=== PATIENT | male | born 1945 | race Caucasian/White ===

== ENCOUNTER 2019-01-30 10:30 | Emergency (ER) | payer MEDICARE, BC ==
[~2019-01-30] VITALS: Ht 167.6 cm; Wt 104.0 kg
[~2019-01-30 10:30] MED LIST: ALBU8HFA PO; CAR2T PO; DUTA0.5C40 PO; NOR5T PO; NORCO10T PO; VALS1TAB PO; ZOLP5TAB8 PO
[2019-01-30 11:16] LABS: BASOPHILS % (AUTO) 0.3 % (0-1); EOSINOPHILS # (AUTO) 0.6 X10'3 (0-0.9); EOSINOPHILS % (AUTO) 6.9 % (0-6); HEMATOCRIT 43.3 % (42.0-52.0); HEMOGLOBIN 14.6 g/dl (14.0-17.9); LYMPHOCYTES # (AUTO) 1.5 X10'3 (1.1-4.8); MEAN CORPUSCULAR HEMOGLOBIN 29.2 PG (27.0-31.0); MEAN CORPUSCULAR HGB CONC 33.7 g/dL (33.0-36.5); MEAN CORPUSCULAR VOLUME 86.5 FL (78-98); MEAN PLATELET VOLUME 8.3 FL (7.4-10.4); MONOCYTES # (AUTO) 0.5 X10'3 (0-0.9); MONOCYTES % (AUTO) 6.5 % (2-12); NEUTROPHILS # (AUTO) 5.4 X10'3 (1.8-7.7); NEUTROPHILS % (AUTO) 67.3 % (42-75); PLATELET COUNT 210 X10'3 (140-440); RED CELL DISTRIBUTION WIDTH 14.1 % (11.5-14.5)
[2019-01-30 11:32] LABS: ALANINE AMINOTRANSFERASE 30 U/L (12-78); ALBUMIN 3.8 G/DL (3.4-5.0); ALBUMIN/GLOBULIN RATIO 1.1 (1.1-1.5); ALKALINE PHOSPHATASE 68 IU/L (46-116); ANION GAP 13 (8-16); ASPARTATE AMINO TRANSFERASE 15 U/L (10-37); BILIRUBIN,TOTAL 0.6 MG/DL (0.1-1.0); BLOOD UREA NITROGEN 17 MG/DL (7-18); BUN/CREATININE RATIO 17.9 (5.4-32.0); CALCIUM 8.5 MG/DL (8.5-10.1); CHLORIDE 109 MMOL/L (99-107); CREATININE 0.95 MG/DL (0.60-1.10); GLUCOSE 136 MG/DL (70-104); POTASSIUM 3.9 MMOL/L (3.5-5.1); SODIUM 144 MMOL/L (135-145); TOTAL CARBON DIOXIDE 21.8 MMOL/L (24-32); TOTAL PROTEIN 7.3 G/DL (6.4-8.2); eGFR 78 ML/MIN
--- NOTE | 2019-01-30 13:00 | NUR ---
breaking primary RN pt sounds like he needs a breathing treatment, will req
--- NOTE | 2019-01-30 13:08 | NUR ---
spoke to dr hill, re: diff breathing, he said it is congestion, to order rt cold mist humidifier, put in order
[2019-01-30] MEDS ORDERED: ipratropium/albuterol 3ml nebule NEB ONE (13:50)
[2019-01-30] MEDS ORDERED: ipratropium/albuterol 3ml nebule ONE (13:54)
--- NOTE | 2019-01-30 14:07 | NUR ---
patient receiving breathing tx.call light within reach.
--- NOTE | 2019-01-30 14:12 | NUR ---
paged RT to see if breathing tx has been given.
[2019-01-30 14:33] VITALS: BP 149/88
== END 2019-01-30 14:38 | disposition home or self-care (01) ==
LOC: ER 10:30
DX: J32.9 Chronic sinusitis, unspecified (principal); R05 Cough; I10 Essential (primary) hypertension; G89.29 Other chronic pain; Z79.899 Other long term (current) drug therapy
CPT/HCPCS: 36415; 71046; 80053; 83880; 84484; 85025; 93005; 94640; 94760; 99284

== ENCOUNTER 2019-02-09 21:14 | Inpatient (IN) | payer MEDICARE, OTHER ==
[~2019-02-09] VITALS: Ht 167.6 cm; Wt 102.7 kg
[2019-02-09 22:03] LABS: BASOPHILS % (AUTO) 0.1 % (0-1); EOSINOPHILS # (AUTO) 0.6 X10'3 (0-0.9); EOSINOPHILS % (AUTO) 6.9 % (0-6); HEMATOCRIT 40.6 % (42.0-52.0); HEMOGLOBIN 13.9 g/dl (14.0-17.9); LYMPHOCYTES # (AUTO) 1.9 X10'3 (1.1-4.8); LYMPHOCYTES % (AUTO) 21.3 % (21-51); MEAN CORPUSCULAR HEMOGLOBIN 29.7 PG (27.0-31.0); MEAN CORPUSCULAR HGB CONC 34.2 g/dL (33.0-36.5); MEAN PLATELET VOLUME 8.3 FL (7.4-10.4); MONOCYTES # (AUTO) 0.7 X10'3 (0-0.9); MONOCYTES % (AUTO) 7.5 % (2-12); NEUTROPHILS # (AUTO) 5.6 X10'3 (1.8-7.7); NEUTROPHILS % (AUTO) 64.2 % (42-75); PLATELET COUNT 209 X10'3 (140-440); RED BLOOD COUNT 4.67 X10'6 (4.70-6.10); RED CELL DISTRIBUTION WIDTH 14.6 % (11.5-14.5); WHITE BLOOD COUNT 8.8 X10'3 (4.5-11.0)
[2019-02-09] MEDS ORDERED: dexamethasone sod phosphate 10mg/ml inj IV STA (22:03)
[2019-02-09] MEDS ORDERED: ipratropium/albuterol 3ml nebule NEB ONE ×2 (22:05→23:40)
[2019-02-09 22:11] LABS: PARTIAL THROMBOPLASTIN TIME 27 SECONDS (22-32)
[2019-02-09 22:13] LABS: ALANINE AMINOTRANSFERASE 31 U/L (12-78); ALBUMIN 3.7 G/DL (3.4-5.0); ALKALINE PHOSPHATASE 63 IU/L (46-116); ANION GAP 11 (8-16); ASPARTATE AMINO TRANSFERASE 14 U/L (10-37); BILIRUBIN,TOTAL 0.5 MG/DL (0.1-1.0); BLOOD UREA NITROGEN 16 MG/DL (7-18); BUN/CREATININE RATIO 12.4 (5.4-32.0); CHLORIDE 108 MMOL/L (99-107); CREATININE 1.29 MG/DL (0.60-1.10); GLUCOSE 174 MG/DL (70-104); POTASSIUM 3.7 MMOL/L (3.5-5.1); SODIUM 143 MMOL/L (135-145); TOTAL CARBON DIOXIDE 23.6 MMOL/L (24-32); TOTAL PROTEIN 7.4 G/DL (6.4-8.2); eGFR 55 ML/MIN
--- NOTE | 2019-02-09 23:31 | NUR ---
Pt states he drops to 84% at home without oxygen. Titrated pt off oxygen here and pt is currently 92% on room air. in speaking with pt now.
[2019-02-09] MEDS ORDERED: dexamethasone 4mg tablet PO ONE (23:40)
[2019-02-10] MEDS ORDERED: iohexol 350MG/ML 100ml bottle IV ONE (00:06)
[2019-02-10 01:01] LABS: ABG BASE EXCESS -2.7 mmol/L (-2.0-3.0); ABG HCO3 21.6 mmol/L (22.0-26.0); ABG OXYGEN SATURATION 92.1 % (95-98); ABG PCO2 (T) 36.5 mmHg (35.0-45.0); ABG PH (T) 7.391 (7.350-7.450); ABG PO2 (T) 64.1 mmHg (83-108); ALLEN'S TEST Positive; FCOHb 0.8 % (0.5-1.5); FMetHb 0.2 % (0.3-1.12); FO2Hb 91.2 % (94-100); TOTAL HEMOGLOBIN 14.3 G/dl (14.0-17.9)
[2019-02-10] MEDS ORDERED: magnesium 2GM in 50ml NS 50 ML IV PRN (01:40)
[2019-02-10] MEDS ORDERED: docusate sod 100mg capsule PO PRN (01:40)
[2019-02-10] MEDS ORDERED: potassium CL 10mEq/100ml bag 100 ML IV PRN ×2 (01:40)
[2019-02-10] MEDS ORDERED: magnesium Cl slow-release 64mg tablet PO PRN (01:40)
[2019-02-10] MEDS ORDERED: mag hydrox/Alum hydrox/simeth 30ml oral suspension PO PRN (01:40)
[2019-02-10] MEDS ORDERED: acetaminophen 325mg tablet PO PRN (01:40)
[2019-02-10] MEDS ORDERED: morphine 2 MG/ML inj. syringe IV PRN ×2 (01:40)
[2019-02-10] MEDS ORDERED: potassium Cl 20 mEq SR tablet PO PRN ×2 (01:40)
[2019-02-10] MEDS ORDERED: magnesium 4gm in 100ml NS 100 ML IV PRN (01:40)
[2019-02-10] MEDS ORDERED: ondansetron/PF 4mg/2ml inj IV PRN (01:40)
[2019-02-10] MEDS ORDERED: ipratropium/albuterol 3ml nebule NEB PRN (01:40)
[2019-02-10] MEDS: normal saline 1000ml 1,000 ML IV SCH ×4 (02:33→21:52)
--- NOTE | 2019-02-10 03:12 | NUR ---
Received report from SUN Judge. Awaiting patient arrival to the unit.
--- NOTE | 2019-02-10 03:30 | NUR ---
Patient arrived to the floor via wheelchair. Placed in room 340B. Patient is awake and alert on room air, in no apparent distress. Call light and items of frequent use within reach. Will continue to monitor.
[2019-02-10 03:35] VITALS: BP 133/85
[2019-02-10] MEDS ORDERED: zolpidem 5mg tablet PO PRN (04:15)
--- NOTE | 2019-02-10 06:20 | NUR ---
Problems reprioritized. Patient report given, questions answered & plan of care reviewed with SUN Roman.
--- NOTE | 2019-02-10 06:30 | NUR ---
Patient in room [facility] 340. I have received report from CHERELLE GARSIA and had the opportunity to ask questions and assume patient care. Addendum: 02/10/19 at 1945 by Elkin Hernandez RN INCORRECT PATIENT
--- NOTE | 2019-02-10 06:30 | NUR ---
Patient in room [facility] 340. I have received report from JADA GARSIA and had the opportunity to ask questions and assume patient care.
[2019-02-10] MEDS ORDERED: doxazosin mesylate 2mg tablet PO SCH (08:00)
[2019-02-10] MEDS: K and/or MAG REPLACEMENT MC SCH (08:00)
[2019-02-10] MEDS ORDERED: HYDROCHLOROTHIAZIDE PO SCH (08:00)
[2019-02-10] MEDS ORDERED: dutasteride 0.5 MG capsule PO SCH (08:00)
[2019-02-10] MEDS ORDERED: VALSARTAN PO SCH (08:00)
[2019-02-10 08:16] VITALS: BP 163/93
[2019-02-10] MEDS: amLODIPine 5mg tablet PO SCH (09:26)
[2019-02-10] MEDS: enoxaparin 40mg/0.4ml syringe SQ SCH (09:28)
[2019-02-10] MEDS: methylPREDNISolone sod succ/PF 40mg inj. IV SCH ×2 (09:32→17:33)
[2019-02-10] MEDS: montelukast 10mg tablet PO SCH (10:12)
[2019-02-10 11:00] VITALS: BP 158/76
[2019-02-10] MEDS ORDERED: FAMO20TA8 PO (11:00)
[2019-02-10] MEDS ORDERED: TERA10CA4 PO (11:00)
[2019-02-10] MEDS ORDERED: SPIR25TA5 PO (11:00)
[2019-02-10] MEDS ORDERED: FINA5TAB11 PO (11:00)
[2019-02-10] MEDS ORDERED: BUDE0.5A3 NEB (11:00)
[2019-02-10] MEDS ORDERED: LOSA100T57 PO (11:00)
[2019-02-10] MEDS ORDERED: MONT10TA24 PO (11:00)
[2019-02-10] MEDS ORDERED: BUDE10.2 INH (11:00)
[2019-02-10] MEDS ORDERED: levoFLOXACIN-Levaquin 500mg/D5 100 ML IV ONE (12:55)
[2019-02-10] MEDS: HYDROcodone/acetaminophen 10/325mg tab PO PRN (13:15)
[2019-02-10] MEDS: ipratropium/albuterol 3ml nebule NEB SCH ×2 (13:55→20:15)
--- NOTE | 2019-02-10 17:07 | NUR ---
reviewed student documentation
--- NOTE | 2019-02-10 18:30 | NUR ---
Patient in room [facility] 340. I have received report from NICOLASA and had the opportunity to ask questions and assume patient care.
--- NOTE | 2019-02-10 18:30 | NUR ---
Problems reprioritized. Patient report given, questions answered & plan of care reviewed with ETELVINA GARSIA.
--- NOTE | 2019-02-10 18:30 | NUR ---
Problems reprioritized. Patient report given, questions answered & plan of care reviewed with CHERELLE GARSIA. Addendum: 02/10/19 at 1944 by Elkin Hernandez RN INCORRECT PATIENT
[2019-02-10 19:15] VITALS: BP 150/78
[2019-02-10 23:00] VITALS: BP 105/63
[2019-02-11] MEDS: methylPREDNISolone sod succ/PF 40mg inj. IV SCH ×3 (00:02→15:45)
[2019-02-11] MEDS: ipratropium/albuterol 3ml nebule NEB SCH ×6 (00:03→22:31)
[2019-02-11 05:07] LABS: BASOPHILS % (AUTO) 0 % (0-1); EOSINOPHILS % (AUTO) 0 % (0-6); HEMATOCRIT 38.4 % (42.0-52.0); HEMOGLOBIN 12.8 g/dl (14.0-17.9); LYMPHOCYTES # (AUTO) 0.7 X10'3 (1.1-4.8); LYMPHOCYTES % (AUTO) 6.4 % (21-51); MEAN CORPUSCULAR HEMOGLOBIN 29.3 PG (27.0-31.0); MEAN CORPUSCULAR HGB CONC 33.4 g/dL (33.0-36.5); MEAN CORPUSCULAR VOLUME 87.8 FL (78-98); MEAN PLATELET VOLUME 8.8 FL (7.4-10.4); MONOCYTES # (AUTO) 0.4 X10'3 (0-0.9); MONOCYTES % (AUTO) 3.1 % (2-12); NEUTROPHILS # (AUTO) 10.2 X10'3 (1.8-7.7); NEUTROPHILS % (AUTO) 90.5 % (42-75); PLATELET COUNT 194 X10'3 (140-440); RED BLOOD COUNT 4.37 X10'6 (4.70-6.10); RED CELL DISTRIBUTION WIDTH 14.3 % (11.5-14.5); WHITE BLOOD COUNT 11.3 X10'3 (4.5-11.0)
[2019-02-11 05:27] LABS: ALANINE AMINOTRANSFERASE 31 U/L (12-78); ALBUMIN 3.4 G/DL (3.4-5.0); ALBUMIN/GLOBULIN RATIO 0.9 (1.1-1.5); ALKALINE PHOSPHATASE 56 IU/L (46-116); ANION GAP 10 (8-16); ASPARTATE AMINO TRANSFERASE 13 U/L (10-37); BILIRUBIN,TOTAL 0.3 MG/DL (0.1-1.0); BLOOD UREA NITROGEN 19 MG/DL (7-18); BUN/CREATININE RATIO 16.5 (5.4-32.0); CALCIUM 8.9 MG/DL (8.5-10.1); CHLORIDE 109 MMOL/L (99-107); CREATININE 1.15 MG/DL (0.60-1.10); GLUCOSE 187 MG/DL (70-104); MAGNESIUM 2.1 MG/DL (1.5-2.4); POTASSIUM 4.1 MMOL/L (3.5-5.1); SODIUM 143 MMOL/L (135-145); TOTAL CARBON DIOXIDE 24.4 MMOL/L (24-32); eGFR 63 ML/MIN
--- NOTE | 2019-02-11 06:35 | NUR ---
Problems reprioritized. Patient report given, questions answered & plan of care reviewed with
[2019-02-11 07:00] VITALS: BP 132/73
[2019-02-11] MEDS: K and/or MAG REPLACEMENT MC SCH (08:00)
[2019-02-11] MEDS: montelukast 10mg tablet PO SCH (08:13)
[2019-02-11] MEDS: levoFLOXACIN-Levaquin 500mg/D5 100 ML IV SCH (08:13)
[2019-02-11] MEDS: amLODIPine 5mg tablet PO SCH (08:13)
[2019-02-11] MEDS: enoxaparin 40mg/0.4ml syringe SQ SCH (08:14)
[2019-02-11] MEDS: HYDROcodone/acetaminophen 10/325mg tab PO PRN ×2 (08:15→17:50)
[2019-02-11 11:57] VITALS: BP 153/76
[2019-02-11] MEDS: normal saline 1000ml 1,000 ML IV SCH ×2 (16:39→19:43)
--- NOTE | 2019-02-11 18:30 | NUR ---
Patient in room [facility] 340. I have received report from Estela GARSIA and had the opportunity to ask questions and assume patient care.
[2019-02-11 19:00] VITALS: BP 157/70
[2019-02-11] MEDS: lactobacillus rhamnosus 10,000 MMU CELLS/CAPSULE PO SCH (19:44)
[2019-02-11] MEDS ORDERED: budesonide 0.5mg/2ml UD nebule IH SCH (20:00)
[2019-02-11] MEDS: budesonide 0.5mg/2ml UD nebule IH SCH (20:00)
[2019-02-11] MEDS ORDERED: spironolactone 25 MG tablet PO ONE (20:10)
[2019-02-11] MEDS ORDERED: losartan 50mg tablet PO ONE (20:10)
[2019-02-11] MEDS ORDERED: famotidine 20mg tablet PO ONE (20:10)
[2019-02-11] MEDS ORDERED: finasteride 5mg tablet PO ONE (20:10)
[2019-02-11] MEDS ORDERED: terazosin 5mg capsule PO ONE (20:10)
--- NOTE | 2019-02-11 20:55 | NUR ---
2100 SVN with 0.5mg Pulmicort not given as it was given in report patient not to have any type of Steroids tonight because of procedure in am.
[2019-02-11] MEDS ORDERED: albuterol 2.5 MG/3 ML nebule NEB SCH (21:00)
[2019-02-11 23:02] VITALS: BP 141/63
[2019-02-12 04:52] LABS: BASOPHILS % (AUTO) 0 % (0-1); EOSINOPHILS % (AUTO) 0 % (0-6); HEMATOCRIT 37.8 % (42.0-52.0); HEMOGLOBIN 12.7 g/dl (14.0-17.9); LYMPHOCYTES # (AUTO) 1.4 X10'3 (1.1-4.8); MEAN CORPUSCULAR HEMOGLOBIN 29.7 PG (27.0-31.0); MEAN CORPUSCULAR HGB CONC 33.7 g/dL (33.0-36.5); MEAN PLATELET VOLUME 8.6 FL (7.4-10.4); MONOCYTES # (AUTO) 0.9 X10'3 (0-0.9); MONOCYTES % (AUTO) 6.8 % (2-12); NEUTROPHILS # (AUTO) 11.5 X10'3 (1.8-7.7); NEUTROPHILS % (AUTO) 83.2 % (42-75); PLATELET COUNT 208 X10'3 (140-440); RED BLOOD COUNT 4.29 X10'6 (4.70-6.10); RED CELL DISTRIBUTION WIDTH 14.7 % (11.5-14.5); WHITE BLOOD COUNT 13.9 X10'3 (4.5-11.0)
[2019-02-12 05:01] LABS: ALANINE AMINOTRANSFERASE 36 U/L (12-78); ALBUMIN 3.4 G/DL (3.4-5.0); ALKALINE PHOSPHATASE 54 IU/L (46-116); ANION GAP 8 (8-16); ASPARTATE AMINO TRANSFERASE 20 U/L (10-37); BILIRUBIN,TOTAL 0.3 MG/DL (0.1-1.0); BLOOD UREA NITROGEN 22 MG/DL (7-18); BUN/CREATININE RATIO 19.8 (5.4-32.0); CALCIUM 9.2 MG/DL (8.5-10.1); CHLORIDE 110 MMOL/L (99-107); CREATININE 1.11 MG/DL (0.60-1.10); GLUCOSE 131 MG/DL (70-104); MAGNESIUM 2.3 MG/DL (1.5-2.4); SODIUM 144 MMOL/L (135-145); TOTAL CARBON DIOXIDE 25.9 MMOL/L (24-32); TOTAL PROTEIN 6.8 G/DL (6.4-8.2); eGFR 65 ML/MIN
[2019-02-12] MEDS: HYDROcodone/acetaminophen 10/325mg tab PO PRN (05:19)
[2019-02-12] MEDS: budesonide 0.5mg/2ml UD nebule IH SCH (06:30)
--- NOTE | 2019-02-12 06:57 | NUR ---
Problems reprioritized. Patient report given, questions answered & plan of care reviewed with Joanne GARSIA.
[2019-02-12] MEDS: ipratropium/albuterol 3ml nebule NEB SCH ×2 (07:22→11:00)
[2019-02-12 08:00] VITALS: BP 137/62
[2019-02-12] MEDS ORDERED: famotidine 20mg tablet PO SCH (08:00)
[2019-02-12] MEDS ORDERED: terazosin 5mg capsule PO SCH (08:00)
[2019-02-12] MEDS: K and/or MAG REPLACEMENT MC SCH (08:00)
[2019-02-12] MEDS ORDERED: spironolactone 25 MG tablet PO SCH (08:00)
[2019-02-12] MEDS ORDERED: finasteride 5mg tablet PO SCH (08:00)
[2019-02-12] MEDS ORDERED: montelukast 10mg tablet PO SCH (08:00)
[2019-02-12] MEDS ORDERED: losartan 50mg tablet PO SCH (08:00)
--- NOTE | 2019-02-12 08:00 | NUR ---
Proscar still waiting to be dispensed, still not available pt being discharged. Addendum: 02/12/19 at 1146 by Bettina SHEPHERD Amended: Links added.
[2019-02-12] MEDS: levoFLOXACIN-Levaquin 500mg/D5 100 ML IV SCH (08:13)
[2019-02-12] MEDS: amLODIPine 5mg tablet PO SCH (08:17)
[2019-02-12] MEDS: lactobacillus rhamnosus 10,000 MMU CELLS/CAPSULE PO SCH (08:18)
[2019-02-12] MEDS: montelukast 10mg tablet PO SCH (08:19)
[2019-02-12] MEDS: enoxaparin 40mg/0.4ml syringe SQ SCH (08:21)
[2019-02-12] MEDS ORDERED: LACT1CAP26 PO (10:52)
[2019-02-12] MEDS ORDERED: LEVO500T89 PO (10:52)
== END 2019-02-12 12:42 | disposition home or self-care (01) | DRG 189 ==
LOC: ER 21:15 → ED HOLD 02-10 02:35 → SUR 3N 02-10 03:34
PROVIDERS: ADMIT Family Medicine; ATTEND Family Medicine
PROC: B32T1ZZ Computerized Tomography (CT Scan) of Left Pulmonary Artery using Low Osmolar Contrast (ICD-10-PCS; principal; 2019-02-10)
PROC: B3201ZZ Computerized Tomography (CT Scan) of Thoracic Aorta using Low Osmolar Contrast (ICD-10-PCS; 2019-02-10)
PROC: B32S1ZZ Computerized Tomography (CT Scan) of Right Pulmonary Artery using Low Osmolar Contrast (ICD-10-PCS; 2019-02-10)
PROC: 5A09357 Assistance with Respiratory Ventilation, Less than 24 Consecutive Hours, Continuous Positive Airway Pressure (ICD-10-PCS; 2019-02-11)
PROC: 5A09357 Assistance with Respiratory Ventilation, Less than 24 Consecutive Hours, Continuous Positive Airway Pressure (ICD-10-PCS; 2019-02-12)
DX: J96.21 Acute and chronic respiratory failure with hypoxia (principal); N17.9 Acute kidney failure, unspecified; J44.1 Chronic obstructive pulmonary disease with (acute) exacerbation; G47.33 Obstructive sleep apnea (adult) (pediatric); J32.1 Chronic frontal sinusitis; J45.909 Unspecified asthma, uncomplicated; N40.0 Benign prostatic hyperplasia without lower urinary tract symptoms; I12.9 Hypertensive chronic kidney disease with stage 1 through stage 4 chronic kidney disease, or unspecified chronic kidney disease; Z96.651 Presence of right artificial knee joint; G89.29 Other chronic pain; M54.9 Dorsalgia, unspecified; Z60.2 Problems related to living alone; E66.9 Obesity, unspecified; Z68.36 Body mass index [BMI] 36.0-36.9, adult; Z87.891 Personal history of nicotine dependence; Z79.899 Other long term (current) drug therapy
CPT/HCPCS: 36415; 36600; 71045; 71275; 80053; 82803; 83735; 83880; 84484; 85018; 85025; 85610; 85730; 87081; 93005; 93306; 94640; 94668; 94760; 96374; 99285; G0378; J1100; J1650; J1956; J2920; J7030; Q9967

== ENCOUNTER → 2020-01-09 | Outpatient (CLI) | payer MEDICARE, OTHER ==
[~2020-01-09] MED LIST changes: -ALBU8HFA PO; +BUDE10.2 INH; -CAR2T PO; -DUTA0.5C40 PO; +FINA5TAB11 PO; +LOSA100T57 PO; -NORCO10T PO; +TERA10CA4 PO; -VALS1TAB PO; -ZOLP5TAB8 PO
== END | disposition home or self-care (01) ==
LOC: VAS 13:50
PROVIDERS: ATTEND Orthopaedic Surgery
DX: I82.403 Acute embolism and thrombosis of unspecified deep veins of lower extremity, bilateral (principal)
CPT/HCPCS: 93970

== ENCOUNTER 2020-03-15 08:52 | Inpatient (IN) | payer MEDICARE, OTHER ==
[2020-03-10 13:07] LABS: PRE OP PROTIME 10.5 SECONDS (9.0-12.0)
[2020-03-15] VITALS (8 sets, daily range): BP systolic 99–127; BP diastolic 42–69
[~2020-03-15] VITALS: Ht 167.6 cm; Wt 112.0 kg
[~2020-03-15 08:52] MED LIST changes: -BUDE10.2 INH; +HYDR-4353 PO; +MOME13HF INH; +TRANEXAMIC ACID 1 GM IN NACL,ISO-OS 100 ML IV ONE; +ceFAZolin 2gm in dextrose, iso 50 ML IV ONE; +famotidine 20mg tablet PO ONE; +ringers solution, lacted 1,000 ML IV SCH; +tobramycin sulfate 1.2gm vial ONE; +vancomycin 1,000mg inj ONE; +vancomycin 1,500 MG in NS 300ml IV soln IV ONE
[2020-03-15 10:26] LABS: ISTAT HGB 12.9 g/dl (14.0-18.0); ISTAT IONIZED CALCIUM 1.29 mmol/L (1.03-1.32)
[2020-03-15] MEDS ORDERED: ceFAZolin inj. 3,000 MG in sodium chloride irrig. sol 3,000 ML IR ONE (10:50)
[2020-03-15] MEDS ORDERED: tetracaine 1% (10mg/ml) pres. free inj. ONE (11:07)
[2020-03-15] MEDS ORDERED: cloNIDine hcl/PF 100mcg/ml inj ONE (11:07)
[2020-03-15] MEDS ORDERED: fentaNYL/PF 50MCG/1 ML 2ML syringe ONE ×2 (11:08→11:30)
[2020-03-15] MEDS ORDERED: midazolam 2 mg/2 ml injection ONE (11:09)
[2020-03-15] MEDS ORDERED: ceFAZolin 2gm in dextrose, iso 50 ML IV ONE (11:30)
[2020-03-15] MEDS ORDERED: vancomycin 1,500 MG in NS 300ml IV soln IV ONE (11:30)
[2020-03-15] MEDS ORDERED: ePHEDrine 50MG/ML INJ. ONE ×2 (11:48→12:30)
[2020-03-15] MEDS ORDERED: 0.9 % SODIUM CHLORIDE 10 ML VIAL ONE ×2 (11:48→15:45)
[2020-03-15] MEDS ORDERED: propofol inj 20 ML IV ONE ×12 (11:48→15:03)
[2020-03-15] MEDS ORDERED: dexamethasone sod phosphate 4mg/ml inj. ONE (11:49)
[2020-03-15] MEDS ORDERED: LIDOcaine 1%/PF 5ML 10 MG/ML VIAL ONE (11:49)
[2020-03-15] MEDS ORDERED: ROPIVAcaine 0.5% (5mg/ml) 30ml vial ONE (11:49)
[2020-03-15] MEDS ORDERED: ondansetron/PF 4mg/2ml inj IV PRN ×2 (13:10→16:30)
[2020-03-15] MEDS ORDERED: morphine 4 MG/ML inj SYRINge IV PRN (13:10)
[2020-03-15] MEDS ORDERED: meperidine/PF 25mg/ml syringe IV PRN ×2 (13:10)
[2020-03-15] MEDS ORDERED: morphine 2 MG/ML inj. syringe IV PRN (13:10)
[2020-03-15] MEDS ORDERED: ringers solution, lacted 1,000 ML IV SCH (13:10)
[2020-03-15] MEDS ORDERED: acetaminophen 1,000mg/100ml IV 100 ML IV PRN (13:10)
[2020-03-15] MEDS ORDERED: proCHLORperazine 10 MG/2 ml inj IV PRN (13:10)
[2020-03-15] MEDS ORDERED: ceFAZolin 1000mg inj ONE ×2 (14:07→15:45)
[2020-03-15] MEDS ORDERED: morphine 10mg/ml inj. ONE (15:58)
--- NOTE | 2020-03-15 16:06 | NUR ---
Received from OR via ortho bed, accompanied by Anesthesiologist Donald and report given by Anesthesiolgist. VS stable and mask to 10L sats 98%. 20G to right hand with IVF LR at 100cc/hr. Left knee haylee dressing with left knee hinge brace in place. Distal pulses palpable. Patient has some numbness around sight due to blocks but one area of "throbbing pain behind knee" receiving IV tylenol and will continue to medicate as needed.
[2020-03-15] MEDS: meperidine/PF 25mg/ml syringe IV PRN ×2 (16:16→16:44)
[2020-03-15] MEDS ORDERED: diphenhydrAMINE 25mg capsule PO PRN ×2 (16:30)
[2020-03-15] MEDS ORDERED: bisacodyl 10mg suppository rectal RC PRN (16:30)
[2020-03-15] MEDS ORDERED: magnesium hydroxide 30ml (MOM) UD suspension PO PRN (16:30)
[2020-03-15] MEDS ORDERED: acetaminophen 325mg tablet PO PRN (16:30)
--- NOTE | 2020-03-15 16:55 | NUR ---
received report from ELMA Brandt.
--- NOTE | 2020-03-15 17:06 | NUR ---
Report called to receiving nurse. Transferred via ortho bed. Belongings sent with patient, one patient belongings bag from hosp and two blue shoulder bags which patient states are his CPAP. Special Issues communicated to receiving nurse DILCIA GARSIA. Pt pam and vijay, VICTORINA call light within reach and first set of VS stable. Chart at bedside.
[2020-03-15] MEDS: HYDROcodone/acetaminophen 10/325mg tab PO PRN (18:41)
[2020-03-15] MEDS: budesonide 0.5mg/2ml UD nebule IH SCH (20:00)
[2020-03-15] MEDS: ceFAZolin/D5W- 1GM premix 50 ML IV SCH (20:18)
[2020-03-15] MEDS: albuterol 2.5 MG/3 ML nebule NEB SCH (20:23)
[2020-03-15] MEDS: aspirin 325mg tablet PO SCH (20:56)
[2020-03-15] MEDS: sennosides 8.6mg tablet PO SCH (20:57)
[2020-03-15] MEDS: HYDROmorphone 1 mg/ml syringe IV PRN (21:00)
[2020-03-16] MEDS: HYDROcodone/acetaminophen 10/325mg tab PO PRN ×6 (00:02→23:53)
[2020-03-16] MEDS: potassium Cl 20mEq in NS 1,000 ML IV SCH ×4 (00:07→21:50)
[2020-03-16 02:00] VITALS: BP 115/45
[2020-03-16] MEDS: albuterol 2.5 MG/3 ML nebule NEB SCH ×4 (02:54→21:00)
[2020-03-16 06:00] VITALS: BP 154/61
--- NOTE | 2020-03-16 06:06 | NUR ---
REPORT GIVEN TO SUN LAYTON.
[2020-03-16 06:37] LABS: BASOPHILS % (AUTO) 0.1 % (0-1); EOSINOPHILS % (AUTO) 0 % (0-6); HEMATOCRIT 28.7 % (42.0-52.0); HEMOGLOBIN 9.7 g/dl (14.0-17.9); LYMPHOCYTES # (AUTO) 1.3 X10'3 (1.1-4.8); LYMPHOCYTES % (AUTO) 14.4 % (21-51); MEAN CORPUSCULAR HEMOGLOBIN 28.5 PG (27.0-31.0); MEAN CORPUSCULAR HGB CONC 33.9 g/dL (33.0-36.5); MEAN PLATELET VOLUME 8.2 FL (7.4-10.4); MONOCYTES % (AUTO) 10.6 % (2-12); NEUTROPHILS % (AUTO) 74.9 % (42-75); PLATELET COUNT 233 X10'3 (140-440); RED BLOOD COUNT 3.41 X10'6 (4.70-6.10); RED CELL DISTRIBUTION WIDTH 14.8 % (11.5-14.5); WHITE BLOOD COUNT 9.3 X10'3 (4.5-11.0)
[2020-03-16 06:57] LABS: ALANINE AMINOTRANSFERASE 14 U/L (12-78); ALBUMIN 3.2 G/DL (3.4-5.0); ALBUMIN/GLOBULIN RATIO 0.9 (1.1-1.5); ALKALINE PHOSPHATASE 65 IU/L (46-116); ANION GAP 9 (8-16); ASPARTATE AMINO TRANSFERASE 12 U/L (10-37); BILIRUBIN,TOTAL 0.4 MG/DL (0.1-1.0); BLOOD UREA NITROGEN 15 MG/DL (7-18); BUN/CREATININE RATIO 13.3 (5.4-32.0); CALCIUM 9.2 MG/DL (8.5-10.1); CHLORIDE 106 MMOL/L (99-107); CREATININE 1.13 MG/DL (0.60-1.10); GLUCOSE 123 MG/DL (70-104); POTASSIUM 4.2 MMOL/L (3.5-5.1); SODIUM 139 MMOL/L (135-145); TOTAL CARBON DIOXIDE 23.7 MMOL/L (24-32); TOTAL PROTEIN 6.6 G/DL (6.4-8.2); eGFR 64 ML/MIN
[2020-03-16] MEDS: ceFAZolin/D5W- 1GM premix 50 ML IV SCH (08:00)
[2020-03-16] MEDS: budesonide 0.5mg/2ml UD nebule IH SCH ×2 (08:00→20:00)
[2020-03-16] MEDS: aspirin 325mg tablet PO SCH ×2 (09:11→19:24)
[2020-03-16] MEDS: amLODIPine 5mg tablet PO SCH (09:11)
[2020-03-16] MEDS: losartan 50mg tablet PO SCH (09:12)
[2020-03-16] MEDS: terazosin 5mg capsule PO SCH (09:12)
[2020-03-16] MEDS: finasteride 5mg tablet PO SCH (09:18)
[2020-03-16 10:00] VITALS: BP 187/65
[2020-03-16] MEDS: HYDROmorphone 1 mg/ml syringe IV PRN (15:00)
[2020-03-16] MEDS ORDERED: cefazolin/dext.iso 2gm/100ml 100 ML IV SCH (16:55)
[2020-03-16] MEDS ORDERED: ceFAZolin 2gm in dextrose, iso 50 ML IV SCH (17:15)
[2020-03-16 18:00] VITALS: BP 163/70
--- NOTE | 2020-03-16 18:43 | NUR ---
Patient in room ORTHO 4024. I have received report from Rabia GARSIA and had the opportunity to ask questions and assume patient care.
[2020-03-16] MEDS: vancomycin/NS 1 GM ADD-VANTAGE 250 ML IV SCH (19:24)
[2020-03-16] MEDS: sennosides 8.6mg tablet PO SCH (21:50)
[2020-03-16 22:00] VITALS: BP 164/70
[2020-03-16] MEDS: ceFAZolin 2gm in dextrose, iso 50 ML IV SCH ×2 (23:49→23:50)
[2020-03-17] MEDS: albuterol 2.5 MG/3 ML nebule NEB SCH ×4 (02:54→21:00)
[2020-03-17] MEDS: HYDROcodone/acetaminophen 10/325mg tab PO PRN ×4 (03:25→18:39)
[2020-03-17] MEDS: vancomycin/NS 1 GM ADD-VANTAGE 250 ML IV SCH ×2 (05:23→18:31)
[2020-03-17 05:59] LABS: BASOPHILS % (AUTO) 0.1 % (0-1); EOSINOPHILS % (AUTO) 0 % (0-6); HEMATOCRIT 28.8 % (42.0-52.0); HEMOGLOBIN 9.6 g/dl (14.0-17.9); LYMPHOCYTES # (AUTO) 2.3 X10'3 (1.1-4.8); LYMPHOCYTES % (AUTO) 24.3 % (21-51); MEAN CORPUSCULAR HEMOGLOBIN 28.3 PG (27.0-31.0); MEAN CORPUSCULAR HGB CONC 33.5 g/dL (33.0-36.5); MEAN CORPUSCULAR VOLUME 84.6 FL (78-98); MEAN PLATELET VOLUME 8.4 FL (7.4-10.4); MONOCYTES # (AUTO) 1.3 X10'3 (0-0.9); MONOCYTES % (AUTO) 13.2 % (2-12); NEUTROPHILS # (AUTO) 5.9 X10'3 (1.8-7.7); NEUTROPHILS % (AUTO) 62.4 % (42-75); PLATELET COUNT 224 X10'3 (140-440); WHITE BLOOD COUNT 9.5 X10'3 (4.5-11.0)
[2020-03-17 06:00] VITALS: BP 149/66
--- NOTE | 2020-03-17 06:18 | NUR ---
Problems reprioritized. Patient report given, questions answered & plan of care reviewed with Rabia GARSIA.
[2020-03-17 06:20] LABS: ALANINE AMINOTRANSFERASE 20 U/L (12-78); ALBUMIN 3.1 G/DL (3.4-5.0); ALBUMIN/GLOBULIN RATIO 0.9 (1.1-1.5); ALKALINE PHOSPHATASE 61 IU/L (46-116); ANION GAP 9 (8-16); ASPARTATE AMINO TRANSFERASE 18 U/L (10-37); BILIRUBIN,TOTAL 0.4 MG/DL (0.1-1.0); BLOOD UREA NITROGEN 14 MG/DL (7-18); CALCIUM 9.7 MG/DL (8.5-10.1); CHLORIDE 106 MMOL/L (99-107); CREATININE 1.08 MG/DL (0.60-1.10); GLUCOSE 126 MG/DL (70-104); POTASSIUM 4.1 MMOL/L (3.5-5.1); SODIUM 141 MMOL/L (135-145); TOTAL CARBON DIOXIDE 26.2 MMOL/L (24-32); TOTAL PROTEIN 6.7 G/DL (6.4-8.2); eGFR 67 ML/MIN
[2020-03-17] MEDS: budesonide 0.5mg/2ml UD nebule IH SCH ×2 (07:27→20:00)
[2020-03-17] MEDS: aspirin 325mg tablet PO SCH ×2 (07:36→18:36)
[2020-03-17] MEDS: terazosin 5mg capsule PO SCH (07:36)
[2020-03-17] MEDS: amLODIPine 5mg tablet PO SCH (07:37)
[2020-03-17] MEDS: losartan 50mg tablet PO SCH (07:38)
[2020-03-17] MEDS: ceFAZolin 2gm in dextrose, iso 50 ML IV SCH (07:43)
[2020-03-17] MEDS: finasteride 5mg tablet PO SCH (08:00)
--- NOTE | 2020-03-17 09:38 | NUR ---
admin med per md order, scanner on computer not scanning meds into computer, checked med prior to admin
--- NOTE | 2020-03-17 12:23 | NUR ---
[facility] LINE INFORMATION: REF: [id number] LOT: [id number] EXP: 12/28/2020
--- NOTE | 2020-03-17 18:26 | NUR ---
RECEIVED REPORT FROM CALIN GARSIA AND ASSUMED PATIENT CARE
[2020-03-17 18:27] VITALS: BP 121/55
[2020-03-17] MEDS: lactobacillus rhamnosus 10,000 MMU CELLS/CAPSULE PO SCH (21:12)
[2020-03-17] MEDS: sennosides 8.6mg tablet PO SCH (21:12)
[2020-03-17 22:00] VITALS: BP 154/77
[2020-03-18] MEDS: albuterol 2.5 MG/3 ML nebule NEB SCH ×4 (03:00→20:37)
[2020-03-18] MEDS: HYDROcodone/acetaminophen 10/325mg tab PO PRN ×4 (05:21→23:24)
[2020-03-18] MEDS ORDERED: VANCOMYCIN LEVEL IV ONE (05:30)
[2020-03-18] MEDS: vancomycin/NS 1 GM ADD-VANTAGE 250 ML IV SCH (05:56)
[2020-03-18 06:00] VITALS: BP 152/68
[2020-03-18 06:22] LABS: ALANINE AMINOTRANSFERASE 19 U/L (12-78); ALBUMIN/GLOBULIN RATIO 0.9 (1.1-1.5); ALKALINE PHOSPHATASE 59 IU/L (46-116); ANION GAP 10 (8-16); ASPARTATE AMINO TRANSFERASE 21 U/L (10-37); BASOPHILS % (AUTO) 0.1 % (0-1); BILIRUBIN,TOTAL 0.5 MG/DL (0.1-1.0); BLOOD UREA NITROGEN 17 MG/DL (7-18); BUN/CREATININE RATIO 14.8 (5.4-32.0); CALCIUM 9.8 MG/DL (8.5-10.1); CHLORIDE 101 MMOL/L (99-107); CREATININE 1.15 MG/DL (0.60-1.10); EOSINOPHILS % (AUTO) 0 % (0-6); GLUCOSE 186 MG/DL (70-104); HEMATOCRIT 26.4 % (42.0-52.0); HEMOGLOBIN 8.8 g/dl (14.0-17.9); LYMPHOCYTES # (AUTO) 1.5 X10'3 (1.1-4.8); MEAN CORPUSCULAR HEMOGLOBIN 28.2 PG (27.0-31.0); MEAN CORPUSCULAR HGB CONC 33.4 g/dL (33.0-36.5); MEAN CORPUSCULAR VOLUME 84.4 FL (78-98); MEAN PLATELET VOLUME 8.5 FL (7.4-10.4); MONOCYTES # (AUTO) 1.1 X10'3 (0-0.9); MONOCYTES % (AUTO) 11.1 % (2-12); NEUTROPHILS # (AUTO) 6.9 X10'3 (1.8-7.7); NEUTROPHILS % (AUTO) 72.8 % (42-75); PLATELET COUNT 219 X10'3 (140-440); POTASSIUM 4.1 MMOL/L (3.5-5.1); RED BLOOD COUNT 3.12 X10'6 (4.70-6.10); RED CELL DISTRIBUTION WIDTH 14.8 % (11.5-14.5); SODIUM 135 MMOL/L (135-145); TOTAL CARBON DIOXIDE 24.1 MMOL/L (24-32); TOTAL PROTEIN 6.5 G/DL (6.4-8.2); VANCOMYCIN,TROUGH 14.9 UG/ML (6.0-14.0); WHITE BLOOD COUNT 9.5 X10'3 (4.5-11.0); eGFR 62 ML/MIN
[2020-03-18] MEDS: lactobacillus rhamnosus 10,000 MMU CELLS/CAPSULE PO SCH ×2 (07:30→19:45)
[2020-03-18] MEDS: terazosin 5mg capsule PO SCH (07:30)
[2020-03-18] MEDS: aspirin 325mg tablet PO SCH ×2 (07:30→17:48)
[2020-03-18] MEDS: amLODIPine 5mg tablet PO SCH (07:31)
[2020-03-18] MEDS: losartan 50mg tablet PO SCH (07:32)
[2020-03-18] MEDS: finasteride 5mg tablet PO SCH (07:35)
[2020-03-18] MEDS: budesonide 0.5mg/2ml UD nebule IH SCH ×2 (08:00→20:00)
[2020-03-18] MEDS ORDERED: HYDR-4353 PO (09:52)
[2020-03-18] MEDS ORDERED: ASPI81TA52 PO (09:55)
[2020-03-18 10:00] VITALS: BP 122/53
--- NOTE | 2020-03-18 14:58 | NUR ---
PT REFUSED 1500 SVN. IS WITHOUT DISTRESS
[2020-03-18] MEDS: VANCOmycin 1250MG/NS 250ml Bag 250 ML IV SCH (17:48)
[2020-03-18 18:00] VITALS: BP 122/62
--- NOTE | 2020-03-18 18:06 | NUR ---
Problems reprioritized. Patient report given, questions answered & plan of care reviewed with Madeleine GARSIA.
--- NOTE | 2020-03-18 18:22 | NUR ---
Problems reprioritized. Patient report given, questions answered & plan of care reviewed with Madeleine GARSIA.
--- NOTE | 2020-03-18 18:35 | NUR ---
Patient in room ORTHO 4024. I have received report from Christina GARSIA and had the opportunity to ask questions and assume patient care.
[2020-03-18] MEDS: sennosides 8.6mg tablet PO SCH (19:46)
[2020-03-18 22:00] VITALS: BP 134/71
[2020-03-19] MEDS: albuterol 2.5 MG/3 ML nebule NEB SCH ×3 (02:36→15:00)
[2020-03-19] MEDS: HYDROcodone/acetaminophen 10/325mg tab PO PRN ×3 (05:19→15:11)
[2020-03-19] MEDS: VANCOmycin 1250MG/NS 250ml Bag 250 ML IV SCH (05:21)
[2020-03-19 06:00] VITALS: BP 151/70
--- NOTE | 2020-03-19 06:34 | NUR ---
Problems reprioritized. Patient report given, questions answered & plan of care reviewed with Christina GARSIA.
[2020-03-19] MEDS: budesonide 0.5mg/2ml UD nebule IH SCH (08:00)
[2020-03-19] MEDS: finasteride 5mg tablet PO SCH (08:36)
[2020-03-19] MEDS: amLODIPine 5mg tablet PO SCH (08:37)
[2020-03-19] MEDS: terazosin 5mg capsule PO SCH (08:38)
[2020-03-19] MEDS: losartan 50mg tablet PO SCH (08:38)
[2020-03-19] MEDS: lactobacillus rhamnosus 10,000 MMU CELLS/CAPSULE PO SCH (08:38)
[2020-03-19] MEDS: aspirin 325mg tablet PO SCH (08:39)
[2020-03-19 10:00] VITALS: BP 163/67
--- NOTE | 2020-03-19 15:50 | NUR ---
Patient ready for discharge. All belongings gathered and sent home with patient. Sent home with PICC line for IV antibiotics. Discharge instructions reviewed and given to patient.
[2020-03-20] MEDS ORDERED: VANCOMYCIN LEVEL IV ONE (04:30)
== END 2020-03-19 15:50 | disposition home health service (06) | DRG 468 ==
LOC: PAS IN 08:52 → UNDOADMIN 08:52 → EDSTATUS 11:00 → PAS IN 16:26 → ORTHO 4S 17:10
PROVIDERS: ADMIT Orthopaedic Surgery; ATTEND Orthopaedic Surgery
PROC: 0SRD0EZ Replacement of Left Knee Joint with Articulating Spacer, Open Approach (ICD-10-PCS; 2020-03-15)
PROC: 3E0T3BZ Introduction of Anesthetic Agent into Peripheral Nerves and Plexi, Percutaneous Approach (ICD-10-PCS; 2020-03-15)
PROC: 0SPD0JZ Removal of Synthetic Substitute from Left Knee Joint, Open Approach (ICD-10-PCS; principal; 2020-03-15 11:02)
PROC: 02HV33Z Insertion of Infusion Device into Superior Vena Cava, Percutaneous Approach (ICD-10-PCS; 2020-03-17)
PROC: B548ZZA Ultrasonography of Superior Vena Cava, Guidance (ICD-10-PCS; 2020-03-17)
DX: T84.54XA Infection and inflammatory reaction due to internal left knee prosthesis, initial encounter (principal); D50.0 Iron deficiency anemia secondary to blood loss (chronic); I10 Essential (primary) hypertension; Z96.651 Presence of right artificial knee joint; E66.9 Obesity, unspecified; G47.33 Obstructive sleep apnea (adult) (pediatric); J44.9 Chronic obstructive pulmonary disease, unspecified; N40.0 Benign prostatic hyperplasia without lower urinary tract symptoms; Y83.1 Surgical operation with implant of artificial internal device as the cause of abnormal reaction of the patient, or of later complication, without mention of misadventure at the time of the procedure; Y92.89 Other specified places as the place of occurrence of the external cause; Z68.39 Body mass index [BMI] 39.0-39.9, adult; Z79.899 Other long term (current) drug therapy
CPT/HCPCS: 36415; 36573; 80047; 80053; 80202; 85025; 85610; 85730; 86885; 86900; 86901; 86920; 87070; 87075; 87077; 87081; 87102; 87186; 87635; 94760; 97110; 97116; 97162; 97530; A4618; A6454; A7000; A9272; C1713; C1758; C1776; G0378; J0131; J0690; J0735; J1100; J1170; J2175; J2250; J2270; J2704; J2795; J3010; J3260; J3370; J3480; J7120; L1832; Q0163

== ENCOUNTER 2020-03-24 15:59 | Emergency (ER) | payer MEDICARE, OTHER ==
[~2020-03-24] VITALS: Ht 167.6 cm; Wt 109.1 kg
[~2020-03-24 15:59] MED LIST changes: +ASPI81TA52 PO; -TRANEXAMIC ACID 1 GM IN NACL,ISO-OS 100 ML IV ONE; -ceFAZolin 2gm in dextrose, iso 50 ML IV ONE; -famotidine 20mg tablet PO ONE; -ringers solution, lacted 1,000 ML IV SCH; -tobramycin sulfate 1.2gm vial ONE; -vancomycin 1,000mg inj ONE; -vancomycin 1,500 MG in NS 300ml IV soln IV ONE
[2020-03-24 16:48] LABS: BASOPHILS % (AUTO) 0.1 % (0-1); EOSINOPHILS % (AUTO) 0 % (0-6); HEMATOCRIT 27.5 % (42.0-52.0); HEMOGLOBIN 9.4 g/dl (14.0-17.9); LYMPHOCYTES # (AUTO) 1.7 X10'3 (1.1-4.8); LYMPHOCYTES % (AUTO) 22.1 % (21-51); MEAN CORPUSCULAR HEMOGLOBIN 28.5 PG (27.0-31.0); MEAN CORPUSCULAR HGB CONC 34.1 g/dL (33.0-36.5); MEAN CORPUSCULAR VOLUME 83.7 FL (78-98); MEAN PLATELET VOLUME 7.3 FL (7.4-10.4); MONOCYTES # (AUTO) 0.7 X10'3 (0-0.9); MONOCYTES % (AUTO) 9.5 % (2-12); NEUTROPHILS # (AUTO) 5.3 X10'3 (1.8-7.7); NEUTROPHILS % (AUTO) 68.3 % (42-75); PLATELET COUNT 347 X10'3 (140-440); RED BLOOD COUNT 3.29 X10'6 (4.70-6.10); RED CELL DISTRIBUTION WIDTH 14.8 % (11.5-14.5); WHITE BLOOD COUNT 7.7 X10'3 (4.5-11.0)
[2020-03-24 17:00] LABS: ALANINE AMINOTRANSFERASE 31 U/L (12-78); ALBUMIN 3.3 G/DL (3.4-5.0); ALBUMIN/GLOBULIN RATIO 0.9 (1.1-1.5); ALKALINE PHOSPHATASE 68 IU/L (46-116); ANION GAP 11 (8-16); ASPARTATE AMINO TRANSFERASE 19 U/L (10-37); BILIRUBIN,TOTAL 0.3 MG/DL (0.1-1.0); BLOOD UREA NITROGEN 17 MG/DL (7-18); BUN/CREATININE RATIO 15.9 (5.4-32.0); CALCIUM 9.2 MG/DL (8.5-10.1); CHLORIDE 104 MMOL/L (99-107); CREATININE 1.07 MG/DL (0.60-1.10); GLUCOSE 124 MG/DL (70-104); POTASSIUM 4.1 MMOL/L (3.5-5.1); SODIUM 140 MMOL/L (135-145); TOTAL CARBON DIOXIDE 25.1 MMOL/L (24-32); TOTAL PROTEIN 7.1 G/DL (6.4-8.2); eGFR 68 ML/MIN
[2020-03-24 17:10] VITALS: BP 138/74
--- NOTE | 2020-03-24 17:18 | NUR ---
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
== END 2020-03-24 17:10 | disposition home or self-care (01) ==
LOC: ER 16:00
DX: M00.9 Pyogenic arthritis, unspecified (principal); G89.18 Other acute postprocedural pain; D64.9 Anemia, unspecified; G89.29 Other chronic pain; M54.9 Dorsalgia, unspecified; I10 Essential (primary) hypertension; Z79.899 Other long term (current) drug therapy
CPT/HCPCS: 36415; 80053; 85025; 85610; 86885; 86900; 86901; 93971; 99284

== ENCOUNTER 2020-09-14 10:12 | Day surgery (SDC) | payer MEDICARE, OTHER ==
[2020-09-07 09:20] LABS: PRE OP PROTIME 9.9 SECONDS (9.0-12.0)
[~2020-09-14] VITALS: Ht 167.6 cm; Wt 113.4 kg
[2020-09-14] VITALS (9 sets, daily range): BP systolic 126–162; BP diastolic 71–94
[~2020-09-14 10:12] MED LIST changes: -ASPI81TA52 PO; +HYDR-3972 PO; -HYDR-4353 PO; +LIDOcaine 1% W/epiNEPHrine 1:100,000 20ml vial ONE; -MOME13HF INH; +PRED10TA23 PO; +cefTAZidime 1gm inj ONE; +cocaine 4% topical solution 4ml bottle ONE; +famotidine 20mg tablet PO ONE; +mupirocin 2% ointment 22GM ONE; +oxymetazoline 15 ML nasal spray NS ONE; +ringers solution, lacted 1,000 ML IV SCH
[2020-09-14 11:33] LABS: BASOPHILS # (AUTO) 0.1 X10'3 (0-0.2); BASOPHILS % (AUTO) 1.2 % (0-1); EOSINOPHILS # (AUTO) 0.2 X10'3 (0-0.9); EOSINOPHILS % (AUTO) 1.9 % (0-6); LYMPHOCYTES # (AUTO) 2.2 X10'3 (1.1-4.8); LYMPHOCYTES % (AUTO) 24.6 % (21-51); MEAN CORPUSCULAR HGB CONC 33.5 g/dL (33.0-36.5); MEAN CORPUSCULAR VOLUME 86.7 FL (78-98); MEAN PLATELET VOLUME 8.3 FL (7.4-10.4); MONOCYTES # (AUTO) 0.5 X10'3 (0-0.9); MONOCYTES % (AUTO) 5.8 % (2-12); NEUTROPHILS # (AUTO) 6.1 X10'3 (1.8-7.7); NEUTROPHILS % (AUTO) 66.5 % (42-75); PRE OP HEMOGLOBIN 13.7 g/dL (14.0-17.9); PRE OP PLATELET COUNT 175 X10'3 (140-440); RED BLOOD COUNT 4.73 X10'6 (4.70-6.10); RED CELL DISTRIBUTION WIDTH 15.6 % (11.5-14.5)
[2020-09-14 11:48] LABS: ALBUMIN 3.3 G/DL (3.4-5.0); ALBUMIN/GLOBULIN RATIO 0.9 (1.1-1.5); ALKALINE PHOSPHATASE 80 IU/L (46-116); BLOOD UREA NITROGEN 27 MG/DL (7-18); CALCIUM 8.5 MG/DL (8.5-10.1); CHLORIDE 103 MMOL/L (99-107); CREATININE 1.35 MG/DL (0.60-1.10); PRE OP ALT 36 U/L (30-65); PRE OP ANION GAP 11 (8-16); PRE OP AST 13 U/L (10-37); PRE OP BILIRUB, TOTAL 0.7 MG/DL (0.0-1.0); PRE OP GLUCOSE 145 MG/DL (70-104); PRE OP POTASSIUM 4.1 MMOL/L (3.4-5.1); PRE OP SODIUM 140 MMOL/L (135-145); TOTAL CARBON DIOXIDE 25.9 MMOL/L (24-32); TOTAL PROTEIN 6.8 G/DL (6.4-8.2); eGFR 52 ML/MIN
[2020-09-14] MEDS: oxymetazoline 15 ML nasal spray NS PRN ×2 (12:28→12:35)
[2020-09-14] MEDS ORDERED: fentaNYL/PF 50MCG/1 ML 2ML syringe ONE ×2 (13:22→13:47)
[2020-09-14] MEDS ORDERED: midazolam 1 mg/ML 2ml injection ONE (13:22)
[2020-09-14] MEDS ORDERED: dexamethasone sod phosphate 4mg/ml inj. ONE (14:15)
[2020-09-14] MEDS ORDERED: LIDOcaine 2% (20mg/ml) 5ml vial ONE (14:15)
[2020-09-14] MEDS ORDERED: neostigmine methylsulfate 1 MG/ML 10ml vial ONE (14:15)
[2020-09-14] MEDS ORDERED: ondansetron/PF 4mg/2ml inj ONE (14:15)
[2020-09-14] MEDS ORDERED: glycopyrrolate 0.2mg/ml inj ONE (14:15)
[2020-09-14] MEDS ORDERED: rocuronium 10mg/ml inj IV ONE (14:15)
[2020-09-14] MEDS ORDERED: propofol inj 20 ML IV ONE (14:15)
[2020-09-14] MEDS ORDERED: succinylcholine 20mg/ml inj IV ONE (14:15)
[2020-09-14] MEDS ORDERED: phenylephrine 10mg/ml inj. ONE (14:16)
[2020-09-14] MEDS ORDERED: 0.9 % SODIUM CHLORIDE 10 ML VIAL ONE (14:16)
[2020-09-14] MEDS ORDERED: ePHEDrine 50MG/ML INJ. ONE (14:16)
--- NOTE | 2020-09-14 14:35 | NUR ---
ADMITTED TO PACU FROM OR ACCOMPANIED BY ANESTHESIA. INTIAL PHYSICAL ASSESSMENT DONE AND RECORDED. REPORT RECEIVED FROM ANESTHESIA.
[2020-09-14] MEDS ORDERED: HYDROmorphone/PF 0.2 MG/ML SYRINGE IV PRN ×2 (14:40)
[2020-09-14] MEDS ORDERED: hydrALAZINE 20mg/ml inj. IV PRN (14:40)
[2020-09-14] MEDS ORDERED: morphine 2 MG/ML inj. syringe IV PRN (14:40)
[2020-09-14] MEDS ORDERED: labetalol 20mg/4ml (5mg/ml) syringe IV PRN (14:40)
[2020-09-14] MEDS ORDERED: ringers solution, lacted 1,000 ML IV SCH (14:40)
[2020-09-14] MEDS ORDERED: ondansetron/PF 4mg/2ml inj IV PRN (14:40)
[2020-09-14] MEDS ORDERED: salt irrigation nasal spray 45 ML SPRAY NS PRN (15:40)
--- NOTE | 2020-09-14 16:00 | NUR ---
DISCHARGE CRITERIA MET, DISCHARGE INSTRUCTIONS GIVEN, DEMONSTRATES VERBAL UNDERSTANDING. DISCHARGED HOME IN GOOD CONDITION.
== END 2020-09-14 16:00 | disposition home or self-care (01) ==
LOC: PAS 10:12
PROVIDERS: ATTEND Otolaryngology
DX: J34.2 Deviated nasal septum (principal); J34.3 Hypertrophy of nasal turbinates; J33.8 Other polyp of sinus; G47.33 Obstructive sleep apnea (adult) (pediatric); I10 Essential (primary) hypertension; E66.9 Obesity, unspecified; Z68.41 Body mass index [BMI] 40.0-44.9, adult; N40.0 Benign prostatic hyperplasia without lower urinary tract symptoms; Z79.899 Other long term (current) drug therapy; Z90.49 Acquired absence of other specified parts of digestive tract; Z98.890 Other specified postprocedural states; Z96.653 Presence of artificial knee joint, bilateral; Z96.619 Presence of unspecified artificial shoulder joint; Z79.01 Long term (current) use of anticoagulants
CPT/HCPCS: 30140; 30520; 36415; 80053; 85025; 85576; 85610; 85730; A6402; C9250; J0330; J0713; J1100; J2001; J2250; J2370; J2405; J2704; J2710; J3010; J7120; 88300; 88304; A4618; A7000; J3490

== ENCOUNTER → 2020-11-09 | Day surgery (SDC) | payer MEDICARE, OTHER ==
[2020-11-03 12:12] LABS: BASOPHILS % (AUTO) 0.1 % (0-1); EOSINOPHILS # (AUTO) 0.3 X10'3 (0-0.9); EOSINOPHILS % (AUTO) 2.9 % (0-6); LYMPHOCYTES # (AUTO) 1.9 X10'3 (1.1-4.8); MEAN CORPUSCULAR HEMOGLOBIN 29.2 PG (27.0-31.0); MEAN CORPUSCULAR HGB CONC 33.3 g/dL (33.0-36.5); MEAN CORPUSCULAR VOLUME 87.7 FL (78-98); MONOCYTES # (AUTO) 0.7 X10'3 (0-0.9); NEUTROPHILS # (AUTO) 6.2 X10'3 (1.8-7.7); PRE OP HEMATOCRIT 40.9 % (42.0-52.0); PRE OP HEMOGLOBIN 13.6 g/dL (14.0-17.9); PRE OP PLATELET COUNT 215 X10'3 (140-440); RED BLOOD COUNT 4.67 X10'6 (4.70-6.10); RED CELL DISTRIBUTION WIDTH 15.5 % (11.5-14.5)
[2020-11-03 12:27] LABS: PRE OP PROTIME 10.3 SECONDS (9.0-12.0)
[2020-11-03 13:23] LABS: ALBUMIN 3.8 G/DL (3.4-5.0); ALKALINE PHOSPHATASE 75 IU/L (46-116); BLOOD UREA NITROGEN 22 MG/DL (7-18); BUN/CREATININE RATIO 17.2 (5.4-32.0); CALCIUM 8.8 MG/DL (8.5-10.1); CHLORIDE 105 MMOL/L (99-107); CREATININE 1.28 MG/DL (0.60-1.10); PRE OP ALT 33 U/L (30-65); PRE OP ANION GAP 9 (8-16); PRE OP AST 24 U/L (10-37); PRE OP BILIRUB, TOTAL 0.4 MG/DL (0.0-1.0); PRE OP GLUCOSE 127 MG/DL (70-104); PRE OP POTASSIUM 3.8 MMOL/L (3.4-5.1); PRE OP SODIUM 140 MMOL/L (135-145); TOTAL CARBON DIOXIDE 25.8 MMOL/L (24-32); TOTAL PROTEIN 7.6 G/DL (6.4-8.2); eGFR 55 ML/MIN
[~2020-11-09] VITALS: Ht 167.6 cm; Wt 108.8 kg
[2020-11-09] VITALS (8 sets, daily range): BP systolic 124–161; BP diastolic 67–118
[~2020-11-09] MED LIST changes: +ALBU8.5H8 INH; +HYDROcodone/acetaminophen 5mg/325mg tablet PO ONE; +IPRA3AMP31 INH; +LIDOcaine 1% 30ml preserv. free vial ONE; +LIDOcaine 2% (20mg/ml) 5ml vial ONE; -PRED10TA23 PO; +acetaminophen 1,000mg/100ml IV 100 ML IV ONE; +albuterol 2.5 MG/3 ML nebule NEB PRN; +dexamethasone sod phosphate 4mg/ml inj. ONE; +diazepam 5mg tablet PO ONE; +fentaNYL /PF 50mcg/ml 5ml ampule ONE; +meperidine/PF 25mg/ml syringe IV PRN; +methylPREDNISolone acetate 80mg/ml inj**IM only ONE; +midazolam 1 mg/ML 2ml injection ONE; +morphine 2 MG/ML inj. syringe IV PRN; +morphine 4 MG/ML inj SYRINge IV PRN; +ondansetron/PF 4mg/2ml inj IV PRN; +ondansetron/PF 4mg/2ml inj ONE; +proCHLORperazine 10 MG/2 ml inj IV PRN; +propofol inj 20 ML IV ONE; +salt irrigation nasal spray 45 ML SPRAY NS PRN; +sevoflurane 250ml liquid IH ONE
[2020-11-09] MEDS: oxymetazoline 15 ML nasal spray NS ONE ×2 (08:40→11:18)
--- NOTE | 2020-11-09 12:52 | NUR ---
PT MORE AWAKE ALERT VSS NO DISTRESS SAT 93% ON NC 2L, NASAL TAMPONS REMOVED SHAYY WELL. DENIES PAIN, STATES FEELS STUFFY. NO ACTIVE BLEEDING YAUNKER ED GIVEN TO PT WITH ED. CONT TO MONITOR Addendum: 11/09/20 at 1256 by Jesusita Mohamud RN Amended: Links added.
--- NOTE | 2020-11-09 13:07 | NUR ---
SURG IN TALKING TO PT WITH UPDATE. PT AWAKE COMFORTABLE. CONT TO MONITOR Addendum: 11/09/20 at 1307 by Jesusita Mohamud RN Amended: Links added.
--- NOTE | 2020-11-09 13:50 | NUR ---
PT AWAKE ALERT VSS NO DISTRESS SHAYY PO'S DC INSTR GIVEN NO ?'S OR CONCERN. MEETS CRITERIA TO DC HOME. Addendum: 11/09/20 at 1353 by Jesusita Mohamud RN Amended: Links added.
== END | disposition home or self-care (01) ==
LOC: PAS 07:38
PROVIDERS: ATTEND Otolaryngology
DX: J32.8 Other chronic sinusitis (principal); J44.9 Chronic obstructive pulmonary disease, unspecified; G47.30 Sleep apnea, unspecified; I10 Essential (primary) hypertension; G89.29 Other chronic pain; N40.0 Benign prostatic hyperplasia without lower urinary tract symptoms; E66.01 Morbid (severe) obesity due to excess calories; Z68.38 Body mass index [BMI] 38.0-38.9, adult; Z88.8 Allergy status to other drugs, medicaments and biological substances; Z79.899 Other long term (current) drug therapy; Z79.01 Long term (current) use of anticoagulants; Z96.653 Presence of artificial knee joint, bilateral; Z90.49 Acquired absence of other specified parts of digestive tract; Z98.890 Other specified postprocedural states
CPT/HCPCS: 31253; 31259; 31267; 36415; 61782; 70486; 80053; 82948; 85025; 85576; 85610; 85730; 94640; 94760; A6402; C1726; C9250; J0131; J0713; J1040; J1100; J2001; J2175; J2250; J2405; J2704; J3010; J7040; J7120; 88304; 88311; A4618; A7000

== ENCOUNTER 2021-03-10 10:47 | Emergency (ER) | payer MEDICARE, OTHER ==
[~2021-03-10] VITALS: Ht 165.1 cm; Wt 109.1 kg
[~2021-03-10 10:47] MED LIST changes: +ALBU8.5H17 INH; -ALBU8.5H8 INH; -HYDROcodone/acetaminophen 5mg/325mg tablet PO ONE; -LIDOcaine 1% 30ml preserv. free vial ONE; -LIDOcaine 1% W/epiNEPHrine 1:100,000 20ml vial ONE; -LIDOcaine 2% (20mg/ml) 5ml vial ONE; -acetaminophen 1,000mg/100ml IV 100 ML IV ONE; -albuterol 2.5 MG/3 ML nebule NEB PRN; -cefTAZidime 1gm inj ONE; -cocaine 4% topical solution 4ml bottle ONE; -dexamethasone sod phosphate 4mg/ml inj. ONE; -diazepam 5mg tablet PO ONE; -famotidine 20mg tablet PO ONE; -fentaNYL /PF 50mcg/ml 5ml ampule ONE; -meperidine/PF 25mg/ml syringe IV PRN; -methylPREDNISolone acetate 80mg/ml inj**IM only ONE; -midazolam 1 mg/ML 2ml injection ONE; -morphine 2 MG/ML inj. syringe IV PRN; -morphine 4 MG/ML inj SYRINge IV PRN; -mupirocin 2% ointment 22GM ONE; -ondansetron/PF 4mg/2ml inj IV PRN; -ondansetron/PF 4mg/2ml inj ONE; -oxymetazoline 15 ML nasal spray NS ONE; -proCHLORperazine 10 MG/2 ml inj IV PRN; -propofol inj 20 ML IV ONE; -ringers solution, lacted 1,000 ML IV SCH; -salt irrigation nasal spray 45 ML SPRAY NS PRN; -sevoflurane 250ml liquid IH ONE
--- NOTE | 2021-03-10 11:10 | NUR ---
dr kay at bedside.
[2021-03-10 11:15] LABS: BASOPHILS % (AUTO) 0.2 % (0-1); EOSINOPHILS % (AUTO) 0.1 % (0-6); HEMATOCRIT 39.1 % (42.0-52.0); HEMOGLOBIN 13.1 g/dl (14.0-17.9); LYMPHOCYTES # (AUTO) 1.3 X10'3 (1.1-4.8); LYMPHOCYTES % (AUTO) 14.2 % (21-51); MEAN CORPUSCULAR HEMOGLOBIN 28.5 PG (27.0-31.0); MEAN CORPUSCULAR HGB CONC 33.4 g/dL (33.0-36.5); MEAN CORPUSCULAR VOLUME 85.3 FL (78-98); MEAN PLATELET VOLUME 7.8 FL (7.4-10.4); MONOCYTES # (AUTO) 0.6 X10'3 (0-0.9); MONOCYTES % (AUTO) 6.1 % (2-12); NEUTROPHILS # (AUTO) 7.5 X10'3 (1.8-7.7); NEUTROPHILS % (AUTO) 79.4 % (42-75); PLATELET COUNT 249 X10'3 (140-440); RED BLOOD COUNT 4.59 X10'6 (4.70-6.10); RED CELL DISTRIBUTION WIDTH 15.2 % (11.5-14.5); WHITE BLOOD COUNT 9.4 X10'3 (4.5-11.0)
[2021-03-10 11:29] LABS: D-DIMER 3.73 MG/L FEU (0-0.50)
[2021-03-10 11:31] LABS: ALANINE AMINOTRANSFERASE 24 U/L (12-78); ALBUMIN 3.5 G/DL (3.4-5.0); ALBUMIN/GLOBULIN RATIO 0.8 (1.1-1.5); ALKALINE PHOSPHATASE 95 IU/L (46-116); ANION GAP 9 (8-16); ASPARTATE AMINO TRANSFERASE 16 U/L (10-37); BILIRUBIN,TOTAL 0.4 MG/DL (0.1-1.0); BLOOD UREA NITROGEN 21 MG/DL (7-18); BUN/CREATININE RATIO 16.7 (5.4-32.0); CHLORIDE 107 MMOL/L (99-107); CREATININE 1.26 MG/DL (0.60-1.10); GLUCOSE 186 MG/DL (70-104); SODIUM 142 MMOL/L (135-145); TOTAL CARBON DIOXIDE 26.1 MMOL/L (24-32); TOTAL PROTEIN 7.7 G/DL (6.4-8.2); eGFR 56 ML/MIN
[2021-03-10] MEDS ORDERED: dexamethasone sod phosphate 10mg/ml inj IV STA ×2 (11:31→11:59)
[2021-03-10] MEDS ORDERED: ipratropium/albuterol 3ml nebule NEB ONE (11:35)
[2021-03-10 11:38] LABS: MAGNESIUM 2.2 MG/DL (1.5-2.4)
--- NOTE | 2021-03-10 12:09 | NUR ---
spoke to blessing and informed that we are having trouble getting dexamethasone out as per blessing pharmacist ,he will bring up rgt now.
[2021-03-10 13:28] VITALS: BP 108/70
--- NOTE | 2021-03-10 13:51 | NUR ---
DR CHOU AT BEDSIDE.BP 151/78,SPO2 95% RA,HR 84 & RR 20.
[2021-03-10] MEDS ORDERED: PRED20TA PO (13:54)
[2021-03-10] MEDS ORDERED: AZIT-83 PO (13:54)
== END 2021-03-10 14:11 | disposition home or self-care (01) ==
LOC: ER 10:47
DX: J40 Bronchitis, not specified as acute or chronic (principal); R06.02 Shortness of breath; I10 Essential (primary) hypertension; J44.9 Chronic obstructive pulmonary disease, unspecified; G89.29 Other chronic pain; Z60.2 Problems related to living alone; Z79.2 Long term (current) use of antibiotics; Z79.899 Other long term (current) drug therapy
CPT/HCPCS: 36415; 71275; 80053; 83735; 83880; 84145; 84484; 85025; 85379; 93005; 94640; 96374; 99285; J1100; 94760

== ENCOUNTER 2021-07-29 04:51 | Inpatient (IN) | payer MEDICARE, OTHER ==
[~2021-07-29] VITALS: Ht 167.6 cm; Wt 111.4 kg
[~2021-07-29 04:51] MED LIST changes: +FURO20TA4 PO; +MONT-40 PO; -NOR5T PO; +PRED20TA PO
[2021-07-29 05:17] LABS: HEMOGLOBIN 13.2 g/dl (14.0-17.9)
[2021-07-29 05:19] LABS: BASOPHILS % (AUTO) 0.3 % (0-1); EOSINOPHILS # (AUTO) 0.6 X10'3 (0-0.9); EOSINOPHILS % (AUTO) 4.6 % (0-6); HEMATOCRIT 39.8 % (42.0-52.0); LYMPHOCYTES # (AUTO) 1.1 X10'3 (1.1-4.8); LYMPHOCYTES % (AUTO) 8.5 % (21-51); MEAN CORPUSCULAR HEMOGLOBIN 28.7 PG (27.0-31.0); MEAN CORPUSCULAR HGB CONC 33.2 g/dL (33.0-36.5); MEAN CORPUSCULAR VOLUME 86.5 FL (78-98); MONOCYTES # (AUTO) 0.7 X10'3 (0-0.9); MONOCYTES % (AUTO) 5.2 % (2-12); NEUTROPHILS # (AUTO) 10.5 X10'3 (1.8-7.7); NEUTROPHILS % (AUTO) 81.4 % (42-75); PLATELET COUNT 235 X10'3 (140-440); RED CELL DISTRIBUTION WIDTH 15.8 % (11.5-14.5); WHITE BLOOD COUNT 12.9 X10'3 (4.5-11.0)
[2021-07-29 05:26] LABS: ALANINE AMINOTRANSFERASE 31 U/L (12-78); ALBUMIN 3.6 G/DL (3.4-5.0); ALKALINE PHOSPHATASE 68 IU/L (46-116); ANION GAP 11 (8-16); ASPARTATE AMINO TRANSFERASE 18 U/L (10-37); BILIRUBIN,TOTAL 0.5 MG/DL (0.1-1.0); BLOOD UREA NITROGEN 21 MG/DL (7-18); BUN/CREATININE RATIO 15.7 (5.4-32.0); CHLORIDE 103 MMOL/L (99-107); CREATININE 1.34 MG/DL (0.60-1.10); GLUCOSE 187 MG/DL (70-104); POTASSIUM 4.2 MMOL/L (3.5-5.1); SODIUM 137 MMOL/L (135-145); TOTAL PROTEIN 7.1 G/DL (6.4-8.2); eGFR 52 ML/MIN
[2021-07-29 06:07] LABS: CLARITY,URINE CLEAR (Clear); COLOR,URINE YELLOW (Yellow); GLUCOSE, URINE NEGATIVE (Neg); KETONES,URINE NEGATIVE (Neg); LEUKOCYTE ESTERASE ,URINE NEGATIVE (Neg); NITRITES, URINE NEGATIVE (Neg); OCCULT BLOOD,URINE NEGATIVE (Neg); PH,URINE 5.5 (4.8-8.0); PROTEIN,URINE NEGATIVE (Neg); UROBILINOGEN,URINE 0.2 E.U/dL (0.2-1.0)
[2021-07-29 06:08] LABS: UA COLLECTION TYPE URINAL
--- NOTE | 2021-07-29 06:12 | NUR ---
Doctor informed of patient's elevated Troponin per SUN Hernandez.
[2021-07-29] MEDS ORDERED: dexamethasone sod phosphate 10mg/ml inj IV STA (06:24)
[2021-07-29] MEDS ORDERED: albuterol 2.5 MG/3 ML nebule NEB ONE (06:25)
[2021-07-29] MEDS ORDERED: aspirin 325mg tablet PO ONE (06:25)
--- NOTE | 2021-07-29 06:30 | NUR ---
first contact with pt, found high-fowlers in bed breathing on 6L simple mask, o2 95%. pt is tachypneic, reports he feels sob while at rest. dr. wiggins at bedside, informed that pt will be admitted.
--- NOTE | 2021-07-29 07:30 | NUR ---
rt at bedside.
[2021-07-29] MEDS ORDERED: potassium Cl 20 mEq SR tablet PO PRN ×2 (08:45)
[2021-07-29] MEDS ORDERED: magnesium hydroxide 30ml (MOM) UD suspension PO PRN (08:45)
[2021-07-29] MEDS ORDERED: acetaminophen 325mg tablet PO PRN (08:45)
[2021-07-29] MEDS ORDERED: magnesium Cl slow-release 64mg tablet PO PRN (08:45)
[2021-07-29] MEDS ORDERED: potassium CL 10mEq/100ml bag 100 ML IV PRN (08:45)
[2021-07-29] MEDS ORDERED: magnesium 2GM in 50ml NS 50 ML IV PRN (08:45)
[2021-07-29] MEDS ORDERED: magnesium 4gm in 100ml NS 100 ML IV PRN (08:45)
[2021-07-29] MEDS ORDERED: normal saline 1000ml 1,000 ML IV SCH (08:45)
[2021-07-29] MEDS ORDERED: mag hydrox/Alum hydrox/simeth 30ml oral suspension PO PRN (08:45)
[2021-07-29] MEDS ORDERED: ondansetron/PF 4mg/2ml inj IV PRN (08:45)
[2021-07-29 09:51] LABS: MAGNESIUM 2.3 MG/DL (1.5-2.4)
[2021-07-29] MEDS: ipratropium/albuterol 3ml nebule NEB SCH ×4 (11:21→23:01)
--- NOTE | 2021-07-29 11:32 | NUR ---
ED HAS HIS OWN CPAP WITH INTERFACE NASAL PILLOWS, HE STATES ITS NEW IN GOOD WORKING ORDER, SUPPLIED HIM WITH STERILE WATER FOR HIS HUMIDIFIER, IN HIS CPAP BAG. Addendum: 07/29/21 at 1137 by Mario Kramer RT Amended: Links added.
--- NOTE | 2021-07-29 11:35 | NUR ---
RT AT BEDSIDE FOR BREATHING TX
--- NOTE | 2021-07-29 12:00 | NUR ---
PT TAKEN OFF SIMPLE MASK, PLACED ON 2L NC. 02 95%. INCREASED WOB WITH EXERTION.
[2021-07-29] MEDS ORDERED: LORA-983 PO (12:15)
[2021-07-29] MEDS ORDERED: ipratropium/albuterol 3ml nebule IH PRN (13:25)
[2021-07-29] MEDS ORDERED: HYDROcodone/acetaminophen 10/325mg tab PO PRN (13:25)
[2021-07-29] MEDS: finasteride 5mg tablet PO SCH (16:40)
[2021-07-29] MEDS: terazosin 5mg capsule PO SCH (16:40)
--- NOTE | 2021-07-29 17:12 | NUR ---
TELEPHONE REPORT TO SUN TORRES
[2021-07-29 18:00] VITALS: BP 152/73
--- NOTE | 2021-07-29 18:19 | NUR ---
promotional table spacer PAGER ID: [phone] MESSAGE: Calixto Doc, [id number](Terra) Critical lab Trop 179. Eduardo GARSIA. TY
[2021-07-29] MEDS: loratadine 10mg tablet PO SCH (19:54)
[2021-07-29] MEDS: docusate sod 100mg capsule PO SCH (19:54)
[2021-07-29] MEDS: methylPREDNISolone sod succ 125mg/2ml vial IV SCH (19:54)
[2021-07-29] MEDS ORDERED: K and/or MAG REPLACEMENT MC SCH (20:00)
[2021-07-29 22:00] VITALS: BP 148/55
[2021-07-30 02:00] VITALS: BP 120/57
[2021-07-30] MEDS: ipratropium/albuterol 3ml nebule NEB SCH ×3 (03:28→11:00)
[2021-07-30 07:44] LABS: BASOPHILS % (AUTO) 0 % (0-1); EOSINOPHILS % (AUTO) 0 % (0-6); HEMATOCRIT 37.8 % (42.0-52.0); HEMOGLOBIN 12.6 g/dl (14.0-17.9); LYMPHOCYTES % (AUTO) 6.4 % (21-51); MEAN CORPUSCULAR HEMOGLOBIN 28.7 PG (27.0-31.0); MEAN CORPUSCULAR HGB CONC 33.4 g/dL (33.0-36.5); MEAN CORPUSCULAR VOLUME 86.1 FL (78-98); MEAN PLATELET VOLUME 8.5 FL (7.4-10.4); MONOCYTES # (AUTO) 0.7 X10'3 (0-0.9); MONOCYTES % (AUTO) 4.2 % (2-12); NEUTROPHILS # (AUTO) 14.6 X10'3 (1.8-7.7); NEUTROPHILS % (AUTO) 89.4 % (42-75); PLATELET COUNT 256 X10'3 (140-440); RED BLOOD COUNT 4.39 X10'6 (4.70-6.10); RED CELL DISTRIBUTION WIDTH 15.7 % (11.5-14.5); WHITE BLOOD COUNT 16.3 X10'3 (4.5-11.0)
[2021-07-30 07:58] LABS: ALBUMIN 3.5 G/DL (3.4-5.0); ANION GAP 13 (8-16); BLOOD UREA NITROGEN 31 MG/DL (7-18); BUN/CREATININE RATIO 23.5 (5.4-32.0); CALCIUM 9.1 MG/DL (8.5-10.1); CHLORIDE 103 MMOL/L (99-107); CREATININE 1.32 MG/DL (0.60-1.10); GLUCOSE 219 MG/DL (70-104); POTASSIUM 4.2 MMOL/L (3.5-5.1); SODIUM 137 MMOL/L (135-145); TOTAL CARBON DIOXIDE 21.5 MMOL/L (24-32); eGFR 53 ML/MIN
[2021-07-30] MEDS ORDERED: enoxaparin 40mg/0.4ml syringe SUBCUT SCH (08:00)
[2021-07-30] MEDS ORDERED: losartan 50mg tablet PO SCH (08:00)
[2021-07-30] MEDS ORDERED: furosemide 20 MG/2 ML vial IV ONE (10:25)
--- NOTE | 2021-07-30 11:07 | NUR ---
pt. refused 1100 svn. not SOB observed
[2021-07-30] MEDS: terazosin 5mg capsule PO SCH (11:25)
[2021-07-30] MEDS: finasteride 5mg tablet PO SCH (11:25)
[2021-07-30 11:26] VITALS: BP_SYST 145
[2021-07-30] MEDS: docusate sod 100mg capsule PO SCH (11:26)
[2021-07-30] MEDS: loratadine 10mg tablet PO SCH (11:27)
[2021-07-30] MEDS: methylPREDNISolone sod succ 125mg/2ml vial IV SCH (11:27)
[2021-07-30] MEDS ORDERED: PRED10TA23 PO (12:34)
[2021-07-30] MEDS ORDERED: LEVO750T46 PO (12:36)
--- NOTE | 2021-07-30 16:07 | NUR ---
Pt stable for discharge per Dr. Bustillo order. All discharge instructions reviewed and all questions answered. Belongings collects and sent with patient. PIV discontinued cannula intact. Tele discontinued. Wheeled to lobby via nurses aid. Picked up by private vehicle.
== END 2021-07-30 14:20 | disposition home or self-care (01) | DRG 189 ==
LOC: ER 04:52 → ED HOLD 08:50 → PCU 3S 17:21
PROVIDERS: ADMIT Family Medicine; ATTEND Family Medicine
PROC: 5A09357 Assistance with Respiratory Ventilation, Less than 24 Consecutive Hours, Continuous Positive Airway Pressure (ICD-10-PCS; principal; 2021-07-29)
PROC: 5A09357 Assistance with Respiratory Ventilation, Less than 24 Consecutive Hours, Continuous Positive Airway Pressure (ICD-10-PCS; 2021-07-30)
DX: J96.01 Acute respiratory failure with hypoxia (principal); I21.A1 Myocardial infarction type 2; J45.901 Unspecified asthma with (acute) exacerbation; J01.90 Acute sinusitis, unspecified; G47.30 Sleep apnea, unspecified; Z60.2 Problems related to living alone; N18.30 Chronic kidney disease, stage 3 unspecified; I12.9 Hypertensive chronic kidney disease with stage 1 through stage 4 chronic kidney disease, or unspecified chronic kidney disease; I25.10 Atherosclerotic heart disease of native coronary artery without angina pectoris; J44.9 Chronic obstructive pulmonary disease, unspecified; E66.01 Morbid (severe) obesity due to excess calories; G89.29 Other chronic pain; M54.9 Dorsalgia, unspecified; Z79.899 Other long term (current) drug therapy; Z82.5 Family history of asthma and other chronic lower respiratory diseases; Z68.39 Body mass index [BMI] 39.0-39.9, adult
CPT/HCPCS: 36415; 71045; 80048; 80053; 81003; 83735; 83880; 84484; 85025; 87081; 93005; 94640; 94760; 96360; 99285; G0378; J1100; J1650; J1940; J2930; J7030

== ENCOUNTER 2023-05-22 19:22 | Emergency (ER) | payer MEDICARE, OTHER ==
[~2023-05-22] VITALS: Ht 165.1 cm; Wt 112.7 kg
[~2023-05-22 19:22] MED LIST changes: +AMLO-708 PO; +FLUT16SP NS; -FURO20TA4 PO; +LORA-983 PO; -LOSA100T57 PO; +LOSA100T58 PO; -MONT-40 PO; -PRED20TA PO
[2023-05-22] MEDS ORDERED: dexamethasone sod phosphate 10mg/ml inj IM STA (19:56)
[2023-05-22] MEDS ORDERED: albuterol 2.5 MG/3 ML nebule NEB ONE (20:00)
[2023-05-22 20:04] LABS: BASOPHILS % (AUTO) 0.3 % (0-1); EOSINOPHILS # (AUTO) 0.2 X10'3 (0-0.9); EOSINOPHILS % (AUTO) 2.9 % (0-6); HEMATOCRIT 39.4 % (42.0-52.0); HEMOGLOBIN 13.2 g/dl (14.0-17.9); LYMPHOCYTES # (AUTO) 1.9 X10'3 (1.1-4.8); LYMPHOCYTES % (AUTO) 24.4 % (21-51); MEAN CORPUSCULAR HEMOGLOBIN 29.8 PG (27.0-31.0); MEAN CORPUSCULAR HGB CONC 33.5 g/dL (33.0-36.5); MEAN CORPUSCULAR VOLUME 88.9 FL (78-98); MEAN PLATELET VOLUME 8.3 FL (7.4-10.4); MONOCYTES # (AUTO) 0.7 X10'3 (0-0.9); MONOCYTES % (AUTO) 8.6 % (2-12); NEUTROPHILS # (AUTO) 4.9 X10'3 (1.8-7.7); NEUTROPHILS % (AUTO) 63.8 % (42-75); PLATELET COUNT 192 X10'3 (140-440); RED BLOOD COUNT 4.44 X10'6 (4.70-6.10); RED CELL DISTRIBUTION WIDTH 14.4 % (11.5-14.5); WHITE BLOOD COUNT 7.7 X10'3 (4.5-11.0)
[2023-05-22 20:19] LABS: ALANINE AMINOTRANSFERASE 23 U/L (12-78); ALBUMIN 3.7 G/DL (3.4-5.0); ALBUMIN/GLOBULIN RATIO 0.9 (1.1-1.5); ALKALINE PHOSPHATASE 76 IU/L (46-116); ANION GAP 10 (8-16); ASPARTATE AMINO TRANSFERASE 18 U/L (10-37); BILIRUBIN,TOTAL 0.3 MG/DL (0.1-1.0); BLOOD UREA NITROGEN 22 MG/DL (7-18); BUN/CREATININE RATIO 19.8 (10.0-20.0); CALCIUM 8.7 MG/DL (8.5-10.1); CHLORIDE 105 MMOL/L (99-107); CREATININE 1.11 MG/DL (0.60-1.10); GLUCOSE 143 MG/DL (70-104); SODIUM 139 MMOL/L (135-145); TOTAL CARBON DIOXIDE 23.6 MMOL/L (24-32); TOTAL PROTEIN 7.6 G/DL (6.4-8.2); eCRCL 49 ML/MIN; eGFR 64 ML/MIN
[2023-05-22 21:05] LABS: PRO BRAIN NATRIURETIC PEPTIDE 43 PG/ML (0-450)
[2023-05-22 22:35] VITALS: PULSE 65; RESP 20
[2023-05-22 22:44] VITALS: PULSE 57; RESP 18
[2023-05-22] MEDS ORDERED: aspirin 325mg tablet PO ONE (22:45)
[2023-05-22] MEDS ORDERED: AZIT-164 PO (23:21)
[2023-05-22] MEDS ORDERED: PRED20TA PO (23:21)
[2023-05-22 23:44] VITALS: BP 153/82; PULSE 65; RESP 18; TEMP 97.8; O2SAT 95
== END 2023-05-22 23:46 | disposition home or self-care (01) ==
LOC: ER 19:22
DX: J40 Bronchitis, not specified as acute or chronic (principal); Z20.822 Contact with and (suspected) exposure to COVID-19; J44.9 Chronic obstructive pulmonary disease, unspecified; I10 Essential (primary) hypertension; Z79.2 Long term (current) use of antibiotics; Z79.899 Other long term (current) drug therapy
CPT/HCPCS: 36415; 70360; 71045; 80053; 83880; 84484; 85025; 87502; 87503; 87811; 93005; 94640; 96372; 99285; J1100; 94760

== ENCOUNTER → 2025-03-19 | Emergency (ER) | payer MEDICARE, OTHER ==
[~2025-03-19] VITALS: Ht 165.1 cm; Wt 109.3 kg
[~2025-03-19] MED LIST changes: +PRED10TA23 PO
[2025-03-19 09:42] VITALS: TEMP 97.8
--- NOTE | 2025-03-19 10:18 | Physician Documentation ---
History of Present Illness ~ Chief Complaint: Asthma Stated Complaint: COUGH SOB Time Seen by MD: 09:54 OK to notify your PCP?: Yes Primary Medical Doctor: andreina Source: patient, family HPI A 79 years old male with the past medical history of recurrent acute on chronic respiratory failure from the frequent uncontrolled asthmatic exacerbation, history of CASH Class III obesity,HTN, chronic sinusitis, and nonspecific allergy, BPH, chronic back pain, chronic sinus issues w/ s/p sinus surgeries, and s/p bilateral knee replacement surgeries presented to the ER who was brought in by his for the acute on chronic shortness of breath with the thick white chunk of sputum production over 2 weeks. He was too breathlessness on the first interview in ER and could not complete the full sentence during the conversation. The most of interview was done by his assistance. They started noticing of progressive worsening SOB over 2 weeks which they attributed for staying at the high altitude. The SOB was associated with the acute on chronic productive cough over last 2 weeks found to have a thick white/ clear chunk of sputum, which they noticed those episodes mostly every 2-3 years although pt is a lifetime non-smoker, and did not undergo the proper PFT for Asthma or COPD diagnosis. He went to the staff electronic warfare officer Dr Mendez. He denied for sick contact and prodromal flu like symptoms. He stated that he has to wake up every 2-3 days at night because of severe SOB but lately it became every night. The patient seems to be noncompliance with the inhalation therapy in which he stated that he dose not use the nebulization therapy Q4hrs as prescribed/ Duoneb while he is outside of the house and that was only replaced by using the rescue inhaler Albuterol. He committed that he has taken the deep breathing before the inhaler therapy. He dose not have to use the o xygen at home although his lowest SpO2 at home was 89% on RA and max was around 92% which he attributed for the high altitude in [facility] where he lives in. He denied for orthopneas and PND with any episodic bilateral leg swelling, and pink frothy sputum on coughing. He deined for any risks of having acute PE. Medication Reconciliation Allergies: Coded Allergies: No Known Allergies (Unverified , 03/19/25) Scheduled Amlodipine Besylate (Amlodipine Besylate), 1 TAB PO DAILY, (Reported) Finasteride (Finasteride), 1 TABLET PO DAILY, (Reported) Fluticasone Propionate (Fluticasone Propionate), 2 SPR NS DAILY Losartan Potassium (Losartan Potassium), 1 TAB PO DAILY, (Reported) Prednisone (Prednisone), 0 PO DAILY Terazosin HCl (Terazosin HCl), 1 CAP PO DAILY, (Reported) Scheduled PRN Albuterol Sulfate (Proair Hfa), 2 PUFFS INH Q4HPRN PRN for wheezing, (Reported) Hydrocodone Bit/Acetaminophen (Hydrocodon-Acetaminophn 10-325 tablet), 1 TAB PO DAILY PRN for moderate or severe pain 4-10, (Reported) Ipratropium/Albuterol Sulfate (Duoneb 2.5-0.5 Mg/3 Ml Soln), 1 VIAL INH Q4H PRN for SOB or wheezing, (Reported) Loratadine/Pseudoephedrine Sul (Claritin-D 12 Hour Tablet), 1 TAB PO Q12H PRN for chest congestion, (Reported) Past Medical History Past Medical History: *ENT*, Hypertension, Asthma, COPD, Sleep Apnea, BPH, Chronic Back Pain Other Past Medical History: recurrent acute on chronic respiratory failure from the frequent uncontrolled asthmatic exacerbation, history of CASH Class III obesity,HTN, chronic sinusitis, and nonspecific allergy, BPH, chronic back pain Past Surgical History: noncontributory Other Past Surgical History: s/p sinus surgeries, and s/p bilateral knee replacement surgery Patient History: FH: COPD (chronic obstructive pulmonary disease) FATHER Smoking Status: Never smoker Alcohol Use: None Drug Use: none Lives with: Spouse, Alone Lives In: Home Past Social History: a lifetime non smoker but secondary exposure to tobacco of his father Review of Systems All Other Systems at this time: Reviewed and Negative ROS ROS were reviewed except for the above mentioned in the HPI. Physical Exam Vital Signs: Temperature: 97.8, Source: Oral, Heart Rate: 95, Respiratory Rate: 24, BP: 153/66, Pulse Oximetry: 95, Weight: 109.300 Oxygen Flow Rate: 0 Physical Exam General: Too breathlessness to complete the full sentences and frequent coughing up of the white thick sputum. Well alert, well oriented, not confused, not agitated, in acute respiratory distress, well cooperated during the physical. HEENT: No sinuses (maxillary and ethmoidal) tenderness, Conjunctive are pink, sclerae clear, no icterus, pupil is equal in both sides, reactive to light, no ear discharge, no pharyngeal erythema or an edema, mouth and lips are dry Neck: Supple, no JVD, no lymphadenopathy and thyromegaly. Lungs: audible wheezing, Equal air entry on both lungs with almost disappear/ faint expiratory, bilateral widespread expiratory rhonchi Heart: S1-S2 regular sinus rhythm and, regular rate, no gallops, no rubs, no murmurs Abdomen: No visible peristalsis, Bowel sounds present on auscultation, soft, nontender, no guarding, no rigidity Extremities: No obvious deformities, no pitting edema bilaterally, capillary refill intact, able to wiggle toes both sides, peripheral pulsations are intact on both sides MERRY GO ROUND ATTENDANT: No focal neurological deficits, no motor and sensory weakness in all 4 extremities, could move all 4 extremities Musculoskeletal: No joint swelling, deformities, inflammations, and no scoliosis and back tenderness Skin: No active skin lesions and rashes Progress Results/Orders Results/Orders Completed Orders - JALIL ALARCON DO Electrocardiogram (03/19/25 10:20) Hs Troponin I W Calculations (03/19/25 10:20) Hs Troponin I W Calculations (03/19/25 12:20) Medications Received in ER Medications (Trade) Dose Ordered Sig/Werner Route PRN Reason Start Time Stop Time Status Last Admin Dose Admin (ipratrop/ albuterol 0.5-3(2.5) MG/3ml nebule) 3 ml STAT STAT NEB 03/19/25 10:04 03/19/25 10:10 DC 03/19/25 11:17 3 ML (SoluMEDROL 125mg inj) 125 mg ONCE ONCE IV 03/19/25 10:05 03/19/25 10:10 DC 03/19/25 10:33 125 MG (MuciNEX tablet) 600 mg STAT STAT PO 03/19/25 10:04 03/19/25 10:10 DC 03/19/25 10:32 600 MG Magnesium Sulfate 50 ml @ 25 mls/hr ONCE ONCE IV 03/19/25 10:10 03/19/25 12:09 DC 03/19/25 10:37 25 MLS/HR (Proventil 2.5 MG/3ML nebule) 10 mg STAT STAT CONTNEB 03/19/25 11:18 03/19/25 11:20 DC 03/19/25 11:28 10 MG Vital Signs 03/19/25 03/19/25 03/19/25 03/19/25 09:42 10:10 11:12 11:17 Temp 97.8 Pulse 95 80 80 Resp 24 20 20 B/P (MAP) 153/66 144/144 (144) Pulse Ox 95 94 94 O2 Delivery Room Air* O2 Flow Rate 0 0 0 FiO2 21 03/19/25 03/19/25 03/19/25 03/19/25 11:26 11:29 11:29 12:14 Pulse 74 75 76 Resp 20 20 17 B/P (MAP) 139/71 (93) Pulse Ox 97 98 98 O2 Delivery Room Air* O2 Flow Rate 0 8.0 0 FiO2 21 Laboratory Tests Test 03/19/25 10:07 03/19/25 10:15 03/19/25 10:20 03/19/25 11:04 Influenza Type A Antigen Negative Influenza Type B Antigen Negative SARS-CoV-2 Antigen (Rapid) Negative Troponin I High Sensitivity 53 White Blood Count 11.2 H Red Blood Count 4.65 L Hemoglobin 13.6 L Hematocrit 40.7 L Mean Corpuscular Volume 87.4 Mean Corpuscular Hemoglobin 29.3 Mean Corpuscular Hemoglobin Concent 33.5 Red Cell Distribution Width 14.9 H Platelet Count 220 Mean Platelet Volume 8.1 Neutrophils (%) (Auto) 65.8 Lymphocytes (%) (Auto) 25.0 Monocytes (%) (Auto) 5.8 Eosinophils (%) (Auto) 2.6 Basophils (%) (Auto) 0.8 Neutrophils # (Auto) 7.4 Lymphocytes # (Auto) 2.8 Monocytes # (Auto) 0.6 Eosinophils # (Auto) 0.3 Basophils # (Auto) 0.1 CBC Comment Differential Total Cells Counted 100 Neutrophils % (Manual) 70.0 Lymphocytes % (Manual) 23.0 Monocytes % (Manual) 3.0 Eosinophils % (Manual) 1.0 Metamyelocytes % 2.0 H Reactive Lymphocytes 1.0 H Platelet Estimate Normal Red Blood Cell Morphology Normal Basophilic Stippling Sodium Level 141 Potassium Level 3.5 Chloride Level 106 Carbon Dioxide Level 24.8 Anion Gap 10 Blood Urea Nitrogen 19 H Creatinine 1.11 H Estimated GFR/1.73 m2 64 BUN/Creatinine Ratio 17.1 Glucose Level 159 H Calcium Level 8.7 Total Bilirubin 0.4 Aspartate Amino Transf (AST/SGOT) 13 Alanine Aminotransferase (ALT/SGPT) 19 Alkaline Phosphatase 64 Pro-B-Type Natriuretic Peptide 45 Total Protein 7.0 Albumin 3.4 Globulin 3.6 Albumin/Globulin Ratio 0.9 L Procalcitonin < 0.05 Thyroid Stimulating Hormone (TSH) 1.80 Chemistry Comments Blood Gas Specimen Type Arterial Blood Gas Puncture Site Rr O2 Saturation 94.1 Arterial Blood pH (Temp corrected) 7.425 Arterial Blood pCO2 (Temp correct) 33.0 L Arterial Blood pO2 (Temp corrected) 68.5 L Arterial Blood PO2/FiO2 Ratio 3.26 Arterial Blood HCO3 21.2 Arterial Blood Base Excess -2.4 L Arterial Blood Oxyhemoglobin 93.5 L Arterial Blood Carboxyhemoglobin 0.3 L Arterial Blood Methemoglobin 0.3 Arterial Blood Deoxyhemoglobin 5.9 H Can Test Positive Blood Gas Hemoglobin 14.1 Blood Gas Temperature 37.0 Blood Gas Modality Room air FiO2 21.0 Test 03/19/25 12:09 Troponin I High Sensitivity 51 Troponin I High Sens Percent Delta 3 Troponin I Hi Sens Absolute Change -2 EKG/XRAY/CT/US/VASC/MRI EKG : Additional Comment EKG was obtained and interpreted by myself shows sinus rhythm of 83, normal IL interval, narrow QRS, no QT prolongation, normal axis, no STEMI. Chest X-Ray : Interpreted By: radiologist Views: 1 VIEW Additional Comments FINDINGS: Lines and Tubes: None Lungs: No focal consolidation. Pleura: No effusion. No pneumothorax. Cardiomediastinal contours: Unremarkable Bones: No acute osseous abnormality. IMPRESSION: No acute cardiopulmonary disease. Medical Decision Making Additional information obtaine: family Findings A 79 years old male with the past medical history of recurrent acute on chronic respiratory failure from the frequent uncontrolled asthmatic exacerbation, history of CASH Class III obesity,HTN, chronic sinusitis, and nonspecific allerg y, BPH, chronic back pain, chronic sinus issues w/ s/p sinus surgeries, and s/p bilateral knee replacement surgeries presented to the ER who was brought in by his for the acute on chronic shortness of breath with the thick white chunk of sputum production over 2 weeks. # Acute on Chronic Hypoxic respiratory failure from the below # Acute on chroinc Asthmatic exacerbation -Given extensive history of acute on chronic hypoxic respiratory failure on the background hx of recurrent Asthma exacerbation, Pt was - In ER, pt was given the one time dose of Duoneb along with the high loading dose of IV Solumedrol 125 mg. -Ordered Serology for the Covid and Flu A &B tests were negative -CXR showed IMPRESSION: No acute cardiopulmonary disease. -ABG showed maintaining normal pH with 7.4 along with Low pO2 and pCO2 with normal HCO3. -Low probability of Well's criteria -sputum C&S were sent out -normal CXR and upper normal WBC with normal procalcitonin supportive for unnecessary ABx therapy at that moment -educated about the complaint of the inhalation and nebulization therapy, encouraged to follow up with PCP and referral for proper control under Pulmonology guidance, and possible PFT # CASH # Class III obesity # Hypertension -Pt BP was on slightly elevated side because of the acute respiratory distress. -TSH was ordered Heart Score: 0 Differential Dx:Considerations: Include: anxiety, asthma, bronchitis, CHF, COPD, respiratory distress, respiratory failure, upper resp. infection Departure Disposition: HOME / SELF CARE / HOMELESS Impression: Primary Impression: Acute respiratory failure Additional Impression: Acute asthma exacerbation Condition: Improved Discharge Instructions: Asthma Attack Prevention, Adult Referrals: NO PRIMARY CARE PROVIDER (PCP) Prescriptions Prednisone (Prednisone) 10 Mg Tablet 0 PO DAILY, #42 TABLET Take 6 tabs/day x2 days then 5 daily x2 days 4 daily x2 days 3 daily x2 days 2 daily x2 days 1 daily x2 days then stop. Prov: LA HUNT, RES 03/19/25 Education Educated: Patient Educated regarding: diagnosis, treatment, prognosis, need for follow up Additional Comment Seen with PA/SUPERVISOR GEAR REPAIR Date: Mar 19, 2025 Time: 12:42 This is an attending supervisory note for the resident of record. I have personally participated in care of this patient, has been present during critical and/or mora portions of the patient's service, participated in the evaluation, and provided major portion of medical decision-making, independently interpreted imaging and laboratory studies and participated in disposition of this patient. In brief, this 79-year-old gentleman with a known history of bronchitis, asthma, who presented for evaluation of shortness a breath. Similar to prior bronchitis/asthma exacerbations. Reports productive cough with a by sputum. Denies any chest pain. Denies any fever or chills. He attempted to treat it with the albuterol at home without much success and decided to come here in the emergency department. Incidentally also complains of rash that has been present for the last 30 days, pruritic, bilateral lower extremities. GENERAL: Awake, alert, oriented, GCS 15, no apparent distress, non-toxic appearing, answers questions, follows commands appropriately. HEENT: Atraumatic, normocephalic, pupils equal, extraocular muscles intact, sclerae anicteric, mucus membranes moist, oropharynx is clear, no stridor. NECK: supple, full active range of motion, trachea midline, no thyromegaly, no lymphadenopathy, no JVD. CARDIOVASCULAR: regular rate/rhythm, no murmurs/gallops/rubs, Pulses are 2+ in all extremities and symmetric. Capillary refill less than 2 seconds. PULMONARY: Nonlabored, decreased air movement ,no respiratory distress, speaking in full sentences, coarse breath sounds bilaterally, bilateral left greater than right expiratory wheezing, no ronchi, no rales, no accessory muscle use. GASTROINTESTINAL: Soft, non-tender, non-distended, normal active bowel sounds, no organomegaly, no pulsatile masses, no CVA tenderness. NEUROLOGIC: Lucid with normal mental status. Normal facial symmetry. Moves all extremities symmetrically and with purpose. No truncal ataxia. Speech is fluid without evidence of dysarthria or aphasia, no focal deficits appreciated. MUSCULOSKELETAL: There is full range of motion of all extremities. There is no joint pain or joint swelling or joint erythema. There is no muscle pain or tenderness or swelling. EXTREMITIES: warm, well-perfused, no cyanosis, no clubbing, no edema, no acute deformities. Skin: warm, dry, bilateral lower extremities on the posterior surface there is extensive rash, scaly, maculopapular, blanching, pruritic but nontender, no fluctuance, no crepitus, no violaceous changes, no jaundice, no petechiae orpurpura. No ecchymosis. PSYCHIATRIC: Normal affect, normal insight, normal concentration. Focused exam: [] Facility Status: ED Holds, E process The plan was discussed with the patient, who demonstrates clear understanding of the plan and is in agreement with the plan unless otherwise noted in the chart. All questions have been answered, all concerns were addressed unless otherwise documented. I was available throughout their ED stay for frequent reassessment and questions. Differential Diagnoses (considered and possible or likely): [COVID, influenza, RSV, upper respiratory infection with the top of the viruses, bronchitis, pneumonia, less likely CHF or ACS, unlikely pneumothorax, unlikely PE. With a respect to his rash, differential includes but not limited to most likely eczema, less likely psoriasis, clinically not consistent with a cellulitis, unlikely to be viral rash, clinically not consistent with a erythema multiforme. No evidence of Imtiaz Emilio's, no evidence of bullous impetigo, pemphigus vulgaris, bolus pemphigoid. Unlikely necrotizing infection.] ??Differential Diagnoses (considered and unlikely, not requiring evaluation currently): [See above] MDM Data Please see [facility] for the following: Independent Historians and external Records Review. Historian: [Patient] Independent Historians: ?[] Medication Management: [Reviewed medication list] Social History and determinants: [Reviewed] Please see the body of the note for the following: Any independent interpretations of ECG, imaging studies. All vitals signs/haemodynamics, ordered tests were independently reviewed and interpreted by myself. Nursing triage complaint and vitals reviewed, additional nursing notes were reviewed as available and I agree unless otherwise noted or documented in contradiction in the chart Vital Signs: Independently reviewed Labs: Independently interpreted Imaging: Independently interpreted Old Medical Records: Independently reviewed, see [facility] for relevant summary and information Pulse Oximetry: [] interpreted as [normal on room air] by me [Automotive Sales Representative: [Regular Rate, Regular rhythm, no ectopy, NSR] reviewed and interpreted by me] Additionally notably showing: [Hemodynamics reviewed. The gentleman isn't hypoxic, not tachycardic, no evidence of hypotension. Work of breathing had improved. CBC shows no leukocytosis, no anemia, normal platelets, no neutrophilic predominance. Chemistry is unremarkable. Troponins are negative twice. BNP is normal. Procalcitonin is normal. Thyroid studies are unremarkable. Blood gas is near perfect. COVID and influenza are negative.] Tests considered but not ordered include: [Advanced imaging has been considerably does not appear to be necessary in the setting] Social Determinants of Health Impact: Patient was [facility] in [facility] [place] access to healthcare due to below par ratio of patient to medical providers. [] Comorbid Conditions Impacting Present Evaluation and Care/Treatment: [History of asthma] Management Discussions with other Healthcare Providers: [None] Treatment and Disposition Medication Management (Given or considered): [Steroids, breathing treatment]. See EMR for details Consideration for Hospitalization/Escalation/Deescalation of Care: Admission for observation has been considered, [however the patient is able to tolerate p.o., their symptoms are controlled, they are able to rely on oral medications, and their chief complaint/diagnosis can be managed on outpatient basis.] ?ED Course:?[Markedly improved, not hypoxic] ?Shared decision making:?[Patient is hemodynamically stable for discharge home with follow with their primary care provider. [ ] Specific and cautious return precautions provided and discussed with full understanding. Any incidental findings were also discussed and follow up recommendations given. [] All questions answered. Patient/family were able to verbalize back return precautions. Patient/family agree to plan. Copies of imaging and laboratory st udies were provided.] Code status:?FULL Please see the full Electronic Medical Record for full details of nursing documentation, medications list, other records of complete past medical history and conditions, vital signs, laboratory studies, and any radiologic study interpretations by radiologists. Portions of this note were completed using Povo dictation software and as a result there may exist minor errors in spelling. I have reviewed elements of past family and social history and agree as included in note. Signature Scribe Signature: No scribe Attestation: Resident MD attestation: Patient was seen, examined and discussed with ER attending MD, Dr. Agnes HUNT MD Internal Medicine Resident, PGY3 [facility] Date: Mar 19, 2025 Time: 12:46 This note accurately reflects clinical donavon lam, work performed by myself, Jalil Alarcon, LA BUTLER, RES Mar 19, 2025 10:18 JALIL ALARCON DO Mar 19, 2025 12:44
[2025-03-19 10:31] LABS: MEAN PLATELET VOLUME 8.1 FL (7.4-10.4); RED CELL DISTRIBUTION WIDTH 14.9 % (11.5-14.5)
[2025-03-19] MEDS: guaiFENesin ER 600mg tablet PO STA (10:32)
--- NOTE | 2025-03-19 10:33 | ELECTROCARDIOGRAPH REPORT ---
[facility] Test Date: 2025-03-19 Test Time: 10:30:41 Pat Name: [facility] Department: [facility]-ER Patient ID: [facility]-[id number] Room: Gender: M Risk Lead: : 1945 Requested By: ENEIDA REYNOSO Order Number: [id number] Reading MD: Dr. TAMMY Moore Measurements Intervals [place] Rate: 83 P: 69 MD: 144 QRS: 65 QRSD: 94 T: -22 QT: 368 QTc: 433 Interpretive Statements Sinus rhythm Borderline T abnormalities, inferior leads Electronically Signed On 03-19-2025 16:53:[address] TAMMY Moore Please click the below link to view image of tracing.
[2025-03-19] MEDS: magnesium sulf-water 2g/50mL 50 ML IV ONE (10:37)
[2025-03-19 10:46] LABS: CREATININE 1.11 MG/DL (0.60-1.10); TOTAL CARBON DIOXIDE 24.8 MMOL/L (24-32); eCRCL 48 ML/MIN; eGFR 64 ML/MIN
[2025-03-19 10:56] LABS: PRO BRAIN NATRIURETIC PEPTIDE 45 PG/ML (0-450)
[2025-03-19 11:00] LABS: INFLUENZA TYPE A ANTIGEN RAPID NEGATIVE (Negative); INFLUENZA TYPE B ANTIGEN RAPID NEGATIVE (Negative)
[2025-03-19 11:07] LABS: ABG BASE EXCESS -2.4 mmol/L (-2.0-3.0); ABG HCO3 21.2 mmol/L (21.0-28.0); ABG OXYGEN SATURATION 94.1 % (94.0-98.0); ABG PCO2 (T) 33.0 mmHg (35.0-48.0); ABG PH (T) 7.425 (7.350-7.450); ABG PO2 (T) 68.5 mmHg (83.0-108.0); ALLEN'S TEST POSITIVE; FCOHb 0.3 % (0.5-1.5); FHHb 5.9 % (0.0-5.0); FIO2 21.0 mmHg/%; FMetHb 0.3 % (0.0-1.5); FO2Hb 93.5 % (94.0-98.0); MODE ROOM AIR; PATIENT TEMPERATURE 37.0; TOTAL HEMOGLOBIN 14.1 G/dl (13.5-17.5)
--- NOTE | 2025-03-19 11:12 | RADIOLOGY REPORT ---
EXAM: DI CHEST,SINGLE VIEW Indication: Acute respiratory failure Technique: Single frontal view of the chest was obtained Comparison: DI CHEST,SINGLE VIEW on DOS: 05/22/23, CHEST,SINGLE VIEW on DOS: 08/29/21, CHEST,SINGLE VIEW on DOS: 07/29/21, CTA CHEST on DOS: 06/19/21, CHEST,SINGLE VIEW on DOS: 06/19/21 FINDINGS: Lines and Tubes: None Lungs: No focal consolidation. Pleura: No effusion. No pneumothorax. Cardiomediastinal contours: Unremarkable Bones: No acute osseous abnormality. IMPRESSION: No acute cardiopulmonary disease.
[2025-03-19 11:17] VITALS: PULSE 80; RESP 20; O2SAT 94
[2025-03-19] MEDS: ipratropium/albuterol 3ml nebule NEB STA (11:17)
[2025-03-19 11:18] LABS: EOSINOPHILS % (MANUAL) 1.0 % (0-6); LYMPHOCYTES % (MANUAL) 23.0 % (21-51); METAMYLEOCYTES% (MANUAL) 2.0 % (0-0); MONOCYTES % (MANUAL) 3.0 % (2-12); NEUTROPHILS % (MANUAL) 70.0 % (42-75); PLATELET ESTIMATE NORMAL; REACTIVE LYMPHOCYTES % 1.0 % (0-0)
[2025-03-19 11:26] VITALS: PULSE 74; RESP 20; O2SAT 97
[2025-03-19] MEDS: albuterol 2.5 MG/3 ML nebule CONTNEB STA (11:28)
[2025-03-19 11:29] VITALS: PULSE 75; RESP 20; O2SAT 98
[2025-03-19 13:09] VITALS: BP 149/73; O2SAT 96
[2025-03-19 13:27] VITALS: PULSE 89; RESP 20
== END | disposition home or self-care (01) ==
LOC: ER 09:39
DX: J44.1 Chronic obstructive pulmonary disease with (acute) exacerbation (principal); J96.00 Acute respiratory failure, unspecified whether with hypoxia or hypercapnia; I10 Essential (primary) hypertension; G89.29 Other chronic pain; G47.30 Sleep apnea, unspecified; Z79.899 Other long term (current) drug therapy; Z20.822 Contact with and (suspected) exposure to COVID-19
CPT/HCPCS: 36415; 36600; 71045; 80053; 82803; 83880; 84145; 84443; 84484; 85007; 85018; 85025; 87804; 87811; 93005; 94640; 96365; 96366; 96375; 99285; A4615; J2919; 94760